=== PATIENT | female | born 1960 | race Hispanic/Latino ===

== ENCOUNTER → 2019-03-04 09:18 | Outpatient (CLI) | payer BC, SELFPAY ==
--- NOTE | 2019-03-04 09:26 | BI_ITS ---
MAMMOGRAPHY - BILATERAL DIAGNOSTIC REASON FOR EXAM: Female, 58 years old. Left breast lump. PERTINENT HISTORY: Sister with breast cancer. TECHNIQUE: Digital bilateral breast ace (3D mammographic acquisition) in the CC and MLO projections. 2-D mediolateral oblique (MLO) and craniocaudad (CC) views of both breasts were obtained. CAD: Full Field Digital Mammography with Computer Added Detection was performed. COMPARISON: Comparison is made with prior outside examination dated January 08, 2018. FINDINGS: Breast Composition: The breasts are heterogeneously dense, which may obscure small masses. There are no dominant masses or suspicious calcifications. Since prior study, there has been progressive asymmetry of the breast tissue in the upper deep lateral aspect of the left breast. This may represent breast tissue. Correlation with ultrasound is recommended. No other significant abnormalities are identified. BI/DIAG MAMM W/CAD, BILAT IMPRESSION: Progressive asymmetry of breast tissue in the upper lateral aspect of the left breast. Correlation with ultrasound is recommended. ASSESSMENT CATEGORY: BIRADS Category 0: Incomplete. Need additional imaging evaluation. A letter regarding these results will be sent to the patient by the facility within 30 days. Approximately 10% of breast cancers are not detected by mammography. A normal mammogram should not delay biopsy of a clinically suspicious abnormality. Electronically Signed: González Summers, at 11:48 EST , Service support ,
== END ==
PROVIDERS: Family Provider Nurse Practitioner Family; PCP Nurse Practitioner Family; Visit Provider Nurse Practitioner Family
DX: R92.8 Other abnormal and inconclusive findings on diagnostic imaging of breast (principal); N64.4 Mastodynia
CPT/HCPCS: 77062; 77066; G0279

== ENCOUNTER → 2019-04-22 08:27 | Outpatient (CLI) | payer BC, SELFPAY ==
--- NOTE | 2019-04-22 08:39 | US_ITS ---
STUDY: ULTRASOUND BREAST - LEFT REASON FOR EXAM: Female, 59 years old. Abnormal screening mammogram. TECHNIQUE: Axial and longitudinal images of the LEFT breast were performed with a high resolution ultrasound transducer. # OF IMAGES: 57 COMPARISON: Comparison is made with prior mammogram dated March 04, 2019. FINDINGS: LEFT Breast: There is a 4 mm x 5 mm x 4 mm hypoechoic solid nodule with posterior shadowing and increased vascularity at the 11:00 position of the breast. A biopsy is recommended. This lesion is taller than it is wide. There is also evidence of a 5 mm x 7 mm x 3 mm cyst at the 3:00 position of the breast. US/Breast Limited Unilateral IMPRESSION: Suspicious solid nodule measuring 4 mm x 5 mm x 4 mm with posterior shadowing and increased vascularity at the 11:00 position of the breast. A biopsy is recommended. ASSESSMENT CATEGORY: BIRADS Category 4: Suspicious - Biopsy Should Be Considered. A letter regarding these results will be sent to the patient by the facility within 30 days. Electronically Signed: González Summers, at 10:28 EST , Service support ,
== END ==
PROVIDERS: PCP Nurse Practitioner Family; Referring Provider Nurse Practitioner Family; Visit Provider Nurse Practitioner Family
DX: N63.20 Unspecified lump in the left breast, unspecified quadrant (principal)
CPT/HCPCS: 76642

== ENCOUNTER → 2019-06-03 | Outpatient (CLI) | payer BC, SELFPAY ==
[2019-05-20 14:19] VITALS: BMI 23.1
--- NOTE | 2019-06-03 13:36 | MRI_ITS ---
STUDY: BILATERAL BREAST MR WITHOUT AND WITH CONTRAST REASON FOR EXAM: Female, 59 years old. Biopsy-proven invasive lobular cancer of the left breast. History of breast cancer in sister at age 56. TECHNIQUE: Multi-sequence multi-echo imaging of both breasts was performed with a dedicated breast coil. T1-weighted and T2-weighted images were performed before the administration of contrast. T1-weighted images were also performed after the administration of IV Dotarem 12cc without complications. COMPARISON: Left breast ultrasound dated April 22, 2019 and bilateral mammography dated March 04, 2019 FINDINGS: RIGHT BREAST: The breast tissue is scattered fibroglandular densities with mild background enhancement. There are no abnormal enhancing masses or areas of non-mass enhancement in the right breast. LEFT BREAST: The breast tissue is scattered fibroglandular densities with moderate background enhancement. Irregular enhancing mass at the 1:00 to 2:00 position of the left breast measuring 2.3 cm x 1.6 cm x 1.3 cm located approximately 7 cm behind the nipple. Tissue clip artifact within the central portion of the enhancing mass. Mass is compatible with the known index lesion. Shotty non-pathologically enlarged lymph nodes in both axillary symmetrically. There is no abnormality in the visualized regions of the chest or liver. MRI/Breast Bilateral W/O and W IMPRESSION: Lesion in the left breast corresponding to the index lesion, as described above. No significant abnormality of the right breast. CATEGORY: BIRADS Category 6: Known Biopsy-Proven Malignancy - Appropriate Action Should Be Taken. A letter regarding these results will be sent to the patient by the facility within 30 days. Electronically Signed: Tomi Crow MD at 21:10 EDT , Service support ,
== END | disposition home or self-care (01) ==
LOC: MRI 13:36
PROVIDERS: Referring Provider Surgery; Visit Provider Surgery
DX: C50.912 Malignant neoplasm of unspecified site of left female breast (principal)
CPT/HCPCS: 77049; A9575; A4216; C8908

== ENCOUNTER 2019-06-10 08:24 | Day surgery (SDC) | payer BC, SELFPAY ==
--- NOTE | 2019-05-20 03:05 | HP_ITS ---
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 Is patient in pain?: No Allergies No Known Allergies Allergy (Verified 05/20/19 14:19) Medications cholecalciferol (vitamin D3) 4,000 unit capsule 4,000 unit PO DAILY 05/20/19 [History] multivitamin 1 cap PO DAILY 05/20/19 [History] turmeric root extract 500 mg capsule 500 mg PO DAILY 05/20/19 [History Confirmed 05/20/19] Is last menstrual period known: No Post menopausal: Yes Patient : No PFSH Medical History (Updated 05/20/19 @ 14:18 by Eduarda Rojas) Breast cancer, left (Acute ~05/2019) Surgical History (Updated 05/20/19 @ 14:18 by Eduarda Rojas) History of carpal tunnel surgery of right wrist (Acute) History of colonoscopy (Acute ~2011) History of left breast biopsy (Acute ~05/2019) History of surgical removal of ganglion cyst (Acute) Family History (Updated 05/20/19 @ 14:19 by Eduarda Rojas) Sister Breast cancer Father Heart disease Mother Heart disease Social History (Updated 05/20/19 @ 15:[address] Mark Napoles MD) Smoking Status: Never smoker HPI HPI HPI: KINGSLEY HEARD, is a 59 F who presents to the office today for HPI HPI Surgical H&P: Yes HPI: KINGSLEY HEARD, is a 59 F who presents to the office today for left breast cancer. The patient had a mammogram which showed an area of density in the left breast and an ultrasound showed a BI-RADS 4 lesion which was 4 mm x 5 mm. The patient had biopsy at [facility] which showed invasive lobular carcinoma. The patient is very hesitant and comes to me for second opinion on how to treat this cancer. The patient is not having any symptoms on that side or any pain or discharge. The patient does have a history of breast cancer in her sister. The patient reports that there was a lesion somewhere in the right breast that they tried to biopsy in the past but it was too deep and they were unable to biopsy. ROS General General: No weight change, appetite, fatigue, colon cancer, breast cancer or weakness HEENT HEENT: No difficulty swallowing, eye injury, eye surgery, swollen glands or hoarseness Endo Endocrine: No thyroid disease, diabetes mellitus, thyroid cancer, Hair loss, heat intolerance or cold intolerance Skin Skin: No rash or changing moles Breast Breast: Yes abnormal mammogram and abnormal US; no left breast lump, right breast lump, nipple discharge, breast pain or breast enlargement Musc Musculoskeletal: No back problems, arthritis or rheumatoid arthritis Cardio Cardiovascular: No murmur, pacemaker, heart disease, atrial fibrillation, high blood pressure, heart attack, heart stent, palpitations, shortness of breat with exertion or chest pain Psych Psychiatric: No depression or anxiety Resp Respiratory: No shortness of breath, No sleep apnea, No cough, No COPD, No asthma, No emphysema, No wheezing Gastro Gastrointestinal: No abdominal pain, No nausea or vomiting, No diarrhea, No constipation, No blood in stool, No acid reflux, No hemorrhoids, No ulcers, No gallbladder problem, No black,tarry stools Federico Hematologic: No blood thinners, No blood disorders, No bleeding, No anemia, No blood clots Neuro Neurologic: No weakness Exam Const General: cooperative Orientation: alert, oriented x3 [facility] Head: normal to inspection Ears: hearing grossly normal bilaterally Eyes General: appearance normal, both eyes and all related structures Visual Raphael: normal visual raphael by confrontation Neck Neck: normal visual inspection Chest Chest palpation & inspection: normal inspection of the chest Breast Palpation: No nipple discharge Resp Effort & Inspection: normal respiratory effort Auscultation: clear to auscultation bilaterally Cardio Rate: regular rate Rhythm: regular rhythm Heart Sounds: no murmurs GI Inspection: non-distended Palpation: soft, nontender Musc Cervical Spine: normal cervical lordosis, cervical ROM normal Skin General: no rashes or lesions noted Neuro General: alert, oriented x3 Cranial Nerves: CN's II-XI intact bilaterally Cognition: normal cognition Extrem General: normal to inspection, full ROM Psych Appearance: grossly normal Affect: normal affect Assessment & Plan Problems 1. Invasive lobular carcinoma of left breast in female C50.912 Plan 1. The patient is very anxious over her cancer diagnosis. She came to me for a second opinion as she does not want surgery. She was hoping that her cancer was fully removed during the needle biopsy. I informed her that this is not true and that there can be projections at a microscopic level into the surrounding breast tissue. I believe she needs definitive surgical treatment as well as staging. I informed her that she would have options of mastectomy versus lumpectomy with radiation. I would also recommend sentinel lymph node biopsy. 2. I would recommend preoperative MRI due to the density of her breast and the fact that this is lobular in nature. 3. I discussed surgery with her in detail and due to the size of this and the size of her breasts I do believe that she would be a good candidate for partial mastectomy with sentinel lymph node biopsy with wire localization. I discussed this with them in detail including the risks of bleeding, infection, hematoma, need for further surgery due to positive margins, axillary nerve injury, small chance of lymphedema. The patient understands all the risks and will schedule surgery. 4. I offered the patient if she would like to return to Dr. Moncada I completely understand, or I offered her surgery as well. The patient would like to have surgery here. 5. I spent 1 hour of time with her including counseling for more than 50% of the visit. Mark Napoles MD Pager: [facility] [address] [place] [address], [address] [place] [address] Office: Orders Orders: MRI BREAST W/O CONT BILAT Today C50.912 Coding Level of Care Code Off vis,est,level 5 Diagnoses Invasive lobular carcinoma of left breast in female C50.912 Time Spent (min) 45 05/20/19 1505 <Electronically signed by Mark matthews MD> Date _ Mark Napoles MD I have re-examined the patient. There are no clinical changes since date of exam. I ordered an MRI which showed this 2.3 cm left breast mass with no lymphadenopathy and no other lesions in the contralateral or ipsilateral breast. Plan for needle localization and then partial mastectomy with sentinel lymph node biopsy. Mark Napoles MD Pager: [facility] [address] [place] [address] [address] [place] [address] Office:
--- NOTE | 2019-05-20 03:05 | HP_ITS ---
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 Is patient in pain?: No Allergies No Known Allergies Allergy (Verified 05/20/19 14:19) Medications cholecalciferol (vitamin D3) 4,000 unit capsule 4,000 unit PO DAILY 05/20/19 [History] multivitamin 1 cap PO DAILY 05/20/19 [History] turmeric root extract 500 mg capsule 500 mg PO DAILY 05/20/19 [History Confirmed 05/20/19] Is last menstrual period known: No Post menopausal: Yes Patient : No PFSH Medical History (Updated 05/20/19 @ 14:18 by Eduarda Rojas) Breast cancer, left (Acute ~05/2019) Surgical History (Updated 05/20/19 @ 14:18 by Eduarda Rojas) History of carpal tunnel surgery of right wrist (Acute) History of colonoscopy (Acute ~2011) History of left breast biopsy (Acute ~05/2019) History of surgical removal of ganglion cyst (Acute) Family History (Updated 05/20/19 @ 14:19 by Eduarda Rojas) Sister Breast cancer Father Heart disease Mother Heart disease Social History (Updated 05/20/19 @ 15:[address] Mark Napoles MD) Smoking Status: Never smoker HPI HPI HPI: KINGSLEY HEARD, is a 59 F who presents to the office today for HPI HPI Surgical H&P: Yes HPI: KINGSLEY HEARD, is a 59 F who presents to the office today for left breast cancer. The patient had a mammogram which showed an area of density in the left breast and an ultrasound showed a BI-RADS 4 lesion which was 4 mm x 5 mm. The patient had biopsy at [facility] which showed invasive lobular carcinoma. The patient is very hesitant and comes to me for second opinion on how to treat this cancer. The patient is not having any symptoms on that side or any pain or discharge. The patient does have a history of breast cancer in her sister. The patient reports that there was a lesion somewhere in the right breast that they tried to biopsy in the past but it was too deep and they were unable to biopsy. ROS General General: No weight change, appetite, fatigue, colon cancer, breast cancer or weakness HEENT HEENT: No difficulty swallowing, eye injury, eye surgery, swollen glands or hoarseness Endo Endocrine: No thyroid disease, diabetes mellitus, thyroid cancer, Hair loss, heat intolerance or cold intolerance Skin Skin: No rash or changing moles Breast Breast: Yes abnormal mammogram and abnormal US; no left breast lump, right breast lump, nipple discharge, breast pain or breast enlargement Musc Musculoskeletal: No back problems, arthritis or rheumatoid arthritis Cardio Cardiovascular: No murmur, pacemaker, heart disease, atrial fibrillation, high blood pressure, heart attack, heart stent, palpitations, shortness of breat with exertion or chest pain Psych Psychiatric: No depression or anxiety Resp Respiratory: No shortness of breath, No sleep apnea, No cough, No COPD, No asthma, No emphysema, No wheezing Gastro Gastrointestinal: No abdominal pain, No nausea or vomiting, No diarrhea, No constipation, No blood in stool, No acid reflux, No hemorrhoids, No ulcers, No gallbladder problem, No black,tarry stools Federico Hematologic: No blood thinners, No blood disorders, No bleeding, No anemia, No blood clots Neuro Neurologic: No weakness Exam Const General: cooperative Orientation: alert, oriented x3 [facility] Head: normal to inspection Ears: hearing grossly normal bilaterally Eyes General: appearance normal, both eyes and all related structures Visual Raphael: normal visual raphael by confrontation Neck Neck: normal visual inspection Chest Chest palpation & inspection: normal inspection of the chest Breast Palpation: No nipple discharge Resp Effort & Inspection: normal respiratory effort Auscultation: clear to auscultation bilaterally Cardio Rate: regular rate Rhythm: regular rhythm Heart Sounds: no murmurs GI Inspection: non-distended Palpation: soft, nontender Musc Cervical Spine: normal cervical lordosis, cervical ROM normal Skin General: no rashes or lesions noted Neuro General: alert, oriented x3 Cranial Nerves: CN's II-XI intact bilaterally Cognition: normal cognition Extrem General: normal to inspection, full ROM Psych Appearance: grossly normal Affect: normal affect Assessment & Plan Problems 1. Invasive lobular carcinoma of left breast in female C50.912 Plan 1. The patient is very anxious over her cancer diagnosis. She came to me for a second opinion as she does not want surgery. She was hoping that her cancer was fully removed during the needle biopsy. I informed her that this is not true and that there can be projections at a microscopic level into the surrounding breast tissue. I believe she needs definitive surgical treatment as well as staging. I informed her that she would have options of mastectomy versus lumpectomy with radiation. I would also recommend sentinel lymph node biopsy. 2. I would recommend preoperative MRI due to the density of her breast and the fact that this is lobular in nature. 3. I discussed surgery with her in detail and due to the size of this and the size of her breasts I do believe that she would be a good candidate for partial mastectomy with sentinel lymph node biopsy with wire localization. I discussed this with them in detail including the risks of bleeding, infection, hematoma, need for further surgery due to positive margins, axillary nerve injury, small chance of lymphedema. The patient understands all the risks and will schedule surgery. 4. I offered the patient if she would like to return to Dr. Moncada I completely understand, or I offered her surgery as well. The patient would like to have surgery here. 5. I spent 1 hour of time with her including counseling for more than 50% of the visit. Mark Napoles MD Pager: [facility] [address] [place] [address], [address] [place] [address] Office: Orders Orders: MRI BREAST W/O CONT BILAT Today C50.912 Coding Level of Care Code Off vis,est,level 5 Diagnoses Invasive lobular carcinoma of left breast in female C50.912 Time Spent (min) 45 05/20/19 2855 <Electronically signed by Mark matthews MD> Date _ Mark Napoles MD
[2019-05-20 14:19] VITALS: BMI 23.1
[2019-06-10] VITALS (8 sets, daily range): BP systolic 107–127; BP diastolic 62–75; PULSE 67–99; RESP 14–18; TEMP 36.7–37.2; O2SAT 95–99; BMI 23.8
--- NOTE | 2019-06-10 | AXNB_PTH ---
PATIENT: KINGSLEY HEARD LOC: [facility] – [place] U#:[id number] AGE/SX: 59/F ROOM: RE06/10/[address]: Dr. Mark Napoles MD : 1960 BED: DIS: 06/10/2019 SPEC #: [id number] RECD: 06/10/19 12:11 STATUS: SIERRA REShamar #: [id number] NIKI: 06/10/19 00:[address]: Mark Napoles DEPT: SURGICAL PATHOLOGY RECD BY: Maryanne Bahena ENTERED: 06/10/19 12:40 SP TYPE: AX NODE BX OTHR DR: No Primary Care Phys Tissues: A - Axillary lymph node, NOS B - Left breast, NOS C - Left breast, NOS Procedures: Frozen Section (charge) Frozen Section Add'l ([facility]) Surgery Specimen Level IV Surgery Specimen Level V HEADER OPERATION: Left breast lumpectomy, SN biopsy PRE-OP DIAGNOSIS: Invasive lobular carcinoma of left breast TISSUE SUBMITTED: A - Left axillary lymph node, FS, B - Left partial mastectomy, C - Anterior margin left breast - suture israel new anterior margin FROZEN SECTION DIAGNOSIS A. [place] lymph node, left axillary, biopsy: Two out of two lymph nodes negative for metastatic carcinoma. SALVADOR:roni 06/10/19 MICROSCOPIC DIAGNOSIS A. Left axillary sentinel lymph node, biopsy: One out of two lymph nodes positive for macrometastatic carcinoma. See comment. B. Left breast, partial mastectomy: Three foci of invasive lobular carcinoma (block B1, B8 and B12). Extensive foci of lobular neoplasia (including lobular carcinoma in situ and atypical lobular hyperplasia). See comment and cancer summary below. C. Anterior margin: Extensive atypical lobular hyperplasia. Hyalinized fibroadenoma with focal area of atypical lobular hyperplasia (0.5 x 0.4 cm). Negative for invasive carcinoma. :roni 06/16/19 INVASIVE BREAST CANCER SUMMARY Procedure - excision with wire-guided localization Specimen laterality - left Tumor site - not specified Tumor size - largest invasive carcinoma: 0.5 x 0.4 cm (measured microscopically) Histologic type - invasive lobular carcinoma Histologic Grade (Dayton grade): Glandular/tubular differentiation - score 3 Nuclear pleomorphism - score 1 Mitotic count - score 1 Overall grade - 1 (score of 5) Tumor focality - multiple foci of invasive carcinoma. Number of foci - three Size of individual foci - 0.5 x 0.4 cm (B1) and 0.2 x 0.1 cm, smaller two foci (B8 & B12) Ductal carcinoma in situ (DCIS) - not identified Lobular carcinoma in situ (LCIS): present. See comment. Tumor extension: Skin - not present Nipple - not applicable Skeletal muscle - no skeletal muscle present. Margins - invasive carcinoma: Invasive lobular carcinoma is 0.1 cm away from the closest superior margin. Margins - lobular carcinoma in situ: Lobular carcinoma in situ is 0.1 cm away from the closest superior margin. Regional lymph nodes: Total number of lymph nodes examined - 2 Number of sentinel lymph nodes examined - 2 Number of lymph nodes with macrometastases - 1 Number of lymph nodes with micrometastases and isolated tumor cells - 0 Extranodal extension - not seen Treatment effect - no known presurgical therapy. Lymphvascular invasion - not identified Dermal lymphvascular invasion - not applicable Additional pathologic findings - extensive atypical lobular hyperplasia See comment. - Hyalinized fibroadenoma with focal area of atypical lobular hyperplasia,(0.5 x 0.4 cm) measured microscopically ( specimen C). Ancillary studies - previously performed at [facility] ([id number]) ER - positive (99%, strong intensity) RI - positive (60%, moderate intensity) Her2 wayne - negative (1+) Microcalcifications - present in benign breast tissue. Clinical history - Please make reference to previous specimen from [facility] dated 04/23/19, ([id number]) left breast, abnormal mammogram, needle core biopsy with diagnosis of invasive mammary carcinoma with predominantly lobular features, provisional Dayton grade 1, lobular neoplasia (atypical lobular hyperplasia/lobular carcinoma in situ) and microcalcifications present within lobular neoplasia and unremarkable lobules. PATHOLOGIC STAGE: pT1a(m) pN1a Mx The above summary is in compliance with [employer] (CAP) Cancer Protocols Checklist and [place] Joint Committee on Cancer (AJCC), Staging Manual, 8th Ed. COMMENT A. Immunohistochemistry ([id number]) supports the above diagnosis. Two foci of metastatic carcinoma are noted adjacent to each other and measures 1.75 and 2.25 mm. Frozen section slides are reviewed again and negative for metastatic carcinoma. B. Grossly identified nodule consists of lobular carcinoma in situ. Three foci of invasive lobular carcinomas are noted in the other areas. Multiple foci of extensive lobular neoplasia (including lobular carcinoma in situ and atypical lobular hyperplasia) are noted adjacent to the invasive carcinoma and in the other areas away from the invasive carcinoma. Immunohistochemistry ([id number]) supports the above diagnosis. This case is discussed with Dr. Napoles on 06/17/19. Case has been reviewed in consultation with Dr. Galvan who concurs with the above diagnosis. IDC:AM MICROSCOPIC DESCRIPTION Slides are reviewed. GROSS DESCRIPTION A - Received fresh for frozen section diagnosis labeled with the patient's name is a specimen designated sentinel lymph node, left axillary. The specimen consists of a piece of fibroadipose tissue measuring 2.5 x 2 x 0.5 cm. Two nodules consistent with lymph nodes are identified measuring 0.5 and 1 cm in greatest dimension. The lymph nodes are submitted in entirety for froze section diagnosis as follows: 1??frozen section, one lymph node, 2 - frozen section, one bisected lymph node. / SJ:roni 06/10/19 B - Received fresh for intraoperative consultation labeled with the patient's name and designated left breast partial mastectomy. The specimen consists of a piece of smith-yellow fibroadipose with needle localization measuring 5 x 4.5 x 2 cm. The specimen is oriented as follows: long - lateral, short - superior. The specimen is inked as follows: anterior - yellow, posterior - black, superior - blue, inferior - green, medial - red and lateral - orange. Sections reveal a smith, indurated tumor mass measuring 0.8 x 0.5 x 0.5 cm. This mass is 0.5 cm away from the closest anterior margin. This information is conveyed to the surgeon intraoperatively. Sectioning of the rest of the specimen reveals smith-yellow adipose cut surfaces with scant fibrous area. Equip Maint Eng sections are submitted in eight cassettes as follows: 1?& 2 - perpendicular margin, 3 - tumor, 4-6 - front office representative sections adjacent to the tumor, 7 & 8 - front office representative sections away from the tumor. Sections will be submitted after additional fixation. / SJ:roni 06/11/19 The rest of the specimen is submitted in six more cassettes, 9-14. / :roni 06/15/19 C - Received in fixative is one container labeled with the patient's name and designated anterior margin. The specimen consists of a piece of fibroadipose tissue measuring 2.5 x 2 x 1 cm. The specimen is oriented by a suture identifying the new margin. The specimen is inked as follows: new margin - black, old margin - blue. Sections reveal yellow adipose cut surfaces without any mass lesion. The entire specimen is submitted in three cassettes from one end to another end. / :roni 06/11/19 TC:0 CPT: 00121 x2, 77851, 43618, 98994, 61599
--- NOTE | 2019-06-10 | IMM_PTH ---
PATIENT: KINGSLEY HEARD [place] [facility] [place][id number] AGE/SX: 59/F ROOM: RE06/10/[address]: Dr. Mark Napoles MD : 1960 BED: DIS: 06/10/2019 SPEC #: [id number] RECD: 06/15/19 11:59 STATUS: SIERRA REQ #: [id number] NIKI: 06/10/19 00:[address]: Mark Napoles DEPT: IMMUNOHISTOCHEMISTRY RECD BY: Maryanne Bahena ENTERED: 06/15/19 12:03 SP TYPE: IMMUNO OTHR DR: No Primary Care Phys Tissues: A - Axillary lymph node, NOS B - Left breast, NOS Procedures: CK8 (initial) CALPONIN-1 (add) CK7 (add) CK8 (add) E-CAD (add) Pankeratin (initial) Pankeratin (add) P40 (add) PHYSICIAN & INSTITUTION [place] [id number] SPECIMEN INFORMATION: Tissue Source: A - Left axillary lymph node, B - Left breast partial mastectomy Clinical Info: Invasive lobular carcinoma of left breast Specimen Number: [id number] A1, A2, B1, B2, B3, B8, B12 CPT code: 38647 x2, 10704 x22 METHODOLOGY: Deparaffinized sections of prefer/formalin-fixed tissue or PAP/DQ stained slides are incubated with monoclonal/polyclonal antibodies/oligonucleotide probes. Localization is made via biotin free immunoperoxidase method. Appropriate controls are performed and reacted as expected. Results on target cell population are indicated in the following table: RESULTS: ANTIBODY / CLONE RESULT Block A1 AE1-3 (AE1/AE3/PCK26) positive CK7 (OV-TL12/30) positive Block A2 AE1-3 (AE1/AE3/PCK26) negative CK7 (OV-TL12/30) negative Block B1 CK8 (32kujfS11) positive E-Cad (ECH-6) negative P40 (BC28) negative * Calponin-1 (AG009E) negative * Block B2 CK8 (74jpqmF79) positive E-Cad (ECH-6) negative P40 (BC28) positive Calponin-1 (FX664C) positive Block B3 CK8 (42ijkxY12) positive, weak E-Cad (ECH-6) negative P40 (BC28) negative Calponin-1 (ZU081H) positive, weak Block B8 CK8 (64xisrJ59) positive E-Cad (ECH-6) negative P40 (BC28) negative * Calponin-1 (DV790H) negative * Block B12 CK8 (65kxwpI80) positive E-Cad (ECH-6) negative P40 (BC28) negative * Calponin-1 (RG722Q) negative * *?Positive in the area of lobular neoplasia ( LCIS and atypical lobular hyperplasia). These tests were developed and their performance characteristics determined by [facility]. They may not have been cleared or approved by the U.S. Food and Drug Administration. The FDA has determined that such clearance or approval is not necessary. The above immunohistochemical/dualISH markers are ordered and reviewed by the Pathologist. INTERPRETATION: A. Left axillary lymph node, biopsy: One out of two lymph nodes, positive for macrometastatic carcinoma. See comment. B. Left breast, partial mastectomy: Invasive lobular carcinoma (B1, B8 and B12). Lobular neoplasia including lobular carcinoma in situ and atypical lobular hyperplasia (B1, B2, B3, B8 and B12). SJ:roni 06/16/19 Comment: Smaller lymph node shows two foci of metastatic carcinoma adjacent to each other 1.75 mm to 2.25 mm in greatest dimension. Case has been reviewed in consultation with Dr. Galvan who concurs with the above diagnosis. IDC:AM
--- NOTE | 2019-06-10 08:30 | NM_ITS ---
PROCEDURE: NUCLEAR MEDICINE Injection [place] Node - LEFT breast(s). REASON FOR EXAM: Female, 59 years old. Left breast cancer. TECHNIQUE: [place] node localization using radionuclide methods of the LEFT breast(s) was performed following subcutaneous administration of 1.1 mCi of of sulfur colloid Tc-99m. FINDINGS: 1.1 mCi of technetium labeled sulfur colloid was injected subcutaneously in 4 equal aliquots in the upper medial aspect of the left breast. NM/Lymph Node Injection Only IMPRESSION: Subcutaneous injection of 1.1 mCi of the cerebral sulfur colloid in the upper medial aspect of the left breast. Electronically Signed: González Summers, at 9:21 EDT , Service support ,
[2019-06-10] MEDS: Lactated Ringers 1,000 ML 100 ML IV (09:10)
[2019-06-10] MEDS: Cefazolin 2 GM in 0.9% Normal Saline 100 ML IV (11:27)
[2019-06-10] MEDS: Isosulfan Blue 1% 5 ML Vial (11:53)
--- NOTE | 2019-06-10 12:00 | BI_ITS ---
SURGICAL BREAST SPECIMEN RADIOGRAPH CLINICAL: Document presence of tissue clip marker in biopsy specimen. FINDINGS: Specimen shows presence of tissue clip marker. Electronically Signed: González Summers, at 14:08 EDT , Service support , BI/Breast Biopsy Specimen
[2019-06-10] MEDS: Bupiv/Epi 0.25% 30 ML Vial (12:38)
--- NOTE | 2019-06-10 13:09 | PCM.OPRPT ---
Problem List (1) Invasive lobular carcinoma of left breast in female Status: Acute Report of Operation Date of Procedure: 06/10/19 Pre-Operative Diagnosis: Invasive left lobular carcinoma of the breast Post-Operative Diagnosis: Same Surgery/Procedure Performed:: 1. Stereotactic guided wire localization. 2. Left axillary sentinel lymph node biopsy. 3. Left partial mastectomy with injection of blue dye Specimen's removed: 1. Left axillary lymph node. 2. Left partial mastectomy. 3. New anterior margin of left breast with suture marking the new margin Description of Procedure: Patient was brought to the stereotactic room and the left breast was placed into the table and images were obtained. After stereotactic images were obtained the prior biopsy clip was localized. The skin was prepped with Betadine and injected with local anesthesia. Wire for localization was placed adjacent to the clip. Mammograms were performed and the wire was in good position. Next the patient was brought back to the operating room and general anesthesia was induced. The left retroareolar space was injected with 5 cc of Lymphazurin and 10 cc of saline and then massaged for 5 minutes. The left axilla and breast were prepped in the usual sterile fashion. A curvilinear incision was made in the left axilla and deepened to the axillary fascia which was incised using electrocautery. There was a clear blue node superficially in the axilla which was dissected free and removed. There was no radiotracer in this note or in the axilla. There were no other blue nodes or palpable lymph nodes in the left axilla. These were sent for pathology and the hemostasis was obtained and the axilla was packed with wet gauze. Incision was made over the left breast between the nipple and the wire entry site. Flaps were created using electrocautery. The guidewire was delivered into the incision. Allis was used to grasp the mass and elevated and he was dissected free using electrocautery and removed and marked. It was sent for pathology and hemostasis was obtained. Pathology from the lymph node revealed 2- lymph nodes. Pathology from the breast revealed a 0.8 cm tumor which was 0.5 cm from the anterior margin so a new anterior margin was obtained and marked. The breast cavity was irrigated and suctioned dry and hemostasis was obtained. Next both incisions were injected with local anesthetic. The deep axillary tissue was closed with interrupted 3-0 Vicryl sutures as well as a running superficial 4-0 Monocryl suture. The breast tissue was closed in the same fashion with interrupted 3-0 Vicryl sutures and a running 4-0 Monocryl suture. Histoacryl glue was applied to both incisions. A bra was applied as well. The patient was awoken and taken to PACU in stable condition. The patient tolerated the procedure well. - Admit VTE Documentation VTE Mechan Device Prophylaxis: SCD's
--- NOTE | 2019-06-10 13:15 | DCINST_ITS ---
Discharge Diet: No Restrictions Discharge Activity: May Not Drive - for 2-3 days or while taking narcotic pain meds., May Shower May shower in (days): 1 Lifting Restrictions: 10 pounds for 1 week. Call your doctor if your incision/area has: Continuous Slow Oozing, Sudden Increased Bleeding, Increased Pain/ Swelling, Increased Redness, Foul Smelling Discharge, Swelling at the incision site Call your doctor if you observe: Fever of 101 or Higher Suture Line Care: Avoid Pulling/Pushing, Avoid Pinching/Bending Cleanse incision/area with: Soap & Water Additional Dressing/Incision Instructions:: Remove bulky dressing tomorrow. May leave any opsite dressing for 3-4 days. Keep dressing in place until your follow-up appointment. Allergies/Adverse Reactions: Allergies No Known Allergies Allergy (Verified 06/10/19 08:52) Medications to take at Discharge turmeric root extract 500 mg capsule 500 mg PO DAILY 05/20/19 Calcium Carbonate/Vitamin D3 [Calcium 250-Vit D3 125 Tablet] 1 ea PO DAILY 06/07/19 Cholecalciferol (Vitamin D3) [Vitamin D3] 25 mcg PO 06/07/19 Mv-Min/Iron/Folic/Calcium/Vitk [Women's Multivitamin Tablet] 1 ea PO DAILY 06/07/19 Oxycodone HCl/Acetaminophen [Percocet 5-325 mg Tablet] 1 - 2 tab PO Q6H PRN 7 Days #40 tablet 06/10/19 The following prescriptions were given: Oxycodone HCl/Acetaminophen [Percocet 5-325 mg Tablet] 1 - 2 tab PO Q6H PRN 7 Days #40 tablet PRN Reason: Pain Score 4-10/10 Transmission Status: Sent to [facility] Please Follow Up With: Mark Napoles MD When: Please call to schedule 2 week follow up appointment. [phone]
--- NOTE | 2019-06-10 14:38 | SUR.PHASEII ---
PATIENT INCONTINENT OF STOOL ALL OVER BED. UP TO BATHROOM WITH ASSIST. PATIENT CLEANED UP AND NEW GOWN APPLIED. VERY LETHARGIC. BACK TO BED WITH TWO ASSIST. AWAKENS BRIEFLY IF SPOKEN TO BUT IMMEDIATELY BACK TO SLEEP. SIDERAILS UP. SPOUSE AT BEDSIDE.
== END 2019-06-10 16:10 | disposition home or self-care (01) ==
LOC: SDC 08:25 → AC 08:27
PROVIDERS: Referring Provider Surgery; Visit Provider Surgery
PROC: (CPT 19301; principal; 2019-06-10 11:15)
DX: C50.912 Malignant neoplasm of unspecified site of left female breast (principal); C77.3 Secondary and unspecified malignant neoplasm of axilla and upper limb lymph nodes; N60.92 Unspecified benign mammary dysplasia of left breast; D24.2 Benign neoplasm of left breast
CPT/HCPCS: 00400; 19301; 38500; 19281; 38792; 76098; 88305; 88307; 88331; 88332; 88341; 88342; A9541; J7120; A4216; J2405; Q9968

== ENCOUNTER 2020-02-24 17:44 | Observation (INO) | payer BC, SELFPAY ==
[2019-07-21 15:22] VITALS: BMI 23.6
[2019-07-29 09:12] VITALS: BMI 23.9
[2020-02-24 17:45] VITALS: BP 144/80; PULSE 64; RESP 16; TEMP 36.8; O2SAT 97; BMI 25.5
[2020-02-24] MEDS: Ondansetron 4 MG/2 ML Vial IV (18:09)
--- NOTE | 2020-02-24 18:09 | CT_ITS ---
STUDY: CT LUMBAR SPINE WITHOUT CONTRAST REASON FOR EXAM: Female, 59 years old. FELL 2 FEET OFF STOOL/LOW BACK PAIN RADIATION DOSAGE (If Supplied By Facility): CTDIvol = ( 13.82 ) mGy, DLP = ( 432.55 ) mGycm TECHNIQUE: The patient was scanned in a multi detector CT scanner. High resolution transaxial imaging was performed. Images were obtained from to . Sagittal and coronal images were reconstructed. Individualized dose optimization techniques were used for this CT. COMPARISON: None FINDINGS: Normal lumbar lordosis. There is no substantial scoliosis. There is a compression fracture of T12 vertebral body with fracture line along the anterior and posterior cortex. Mild degree of retropulsion (sagittal image 50 series 605). L1-2: Mild spondylosis. Normal disc height and morphology. Normal bilateral facet joints. Normal central canal and bilateral lateral recesses. Normal bilateral intervertebral neural foramina. L2-3: Mild spondylosis. Normal disc height and morphology. Normal bilateral facet joints. Normal central canal and bilateral lateral recesses. Normal bilateral intervertebral neural foramina. L3-4: Mild spondylosis. Normal disc height and morphology. Normal bilateral facet joints. Normal central canal and bilateral lateral recesses. Normal bilateral intervertebral neural foramina. L4-5: Normal endplates. Normal disc height and morphology. Normal bilateral facet joints. Normal central canal and bilateral lateral recesses. Normal bilateral intervertebral neural foramina. L5-S1: Normal endplates. Normal disc height and morphology. Normal bilateral facet joints. Normal central canal and bilateral lateral recesses. Normal bilateral intervertebral neural foramina. Ovarian dermoid cysts are described on abdomen/pelvis CT report. CT/Spine Lumbar without Contrast IMPRESSION: T12 compression fracture with mild retropulsion. Electronically Signed: Fran Scott MD (Brooks) at 18:58 EST , Service support ,
--- NOTE | 2020-02-24 18:09 | CT_ITS ---
STUDY: CT CERVICAL SPINE WITHOUT CONTRAST REASON FOR EXAM: Female, 59 years old. FELL 2 FEET OFF STOOL/LOW BACK PAIN RADIATION DOSAGE (If Supplied By Facility): CTDIvol = ( 16.66 ) mGy, DLP = ( 300.50 ) mGycm TECHNIQUE: High resolution transaxial imaging was performed without contrast material. Sagittal and coronal images were reconstructed. Individualized dose optimization techniques were used for this CT. COMPARISON: None FINDINGS: Normal craniovertebral junction. Normal anterior atlantoaxial articulation. Normal odontoid process. Normal cervical lordosis. Normal vertebral bodies and posterior osseous elements. C2-3: Normal endplates. Normal disc height and morphology. Normal central canal and intervertebral neuroforamina. C3-4: Normal endplates. Normal disc height and morphology. Normal central canal and intervertebral neuroforamina. C4-5: Normal endplates. Normal disc height and morphology. Normal central canal and intervertebral neuroforamina. C5-6: Normal endplates. Normal disc height and morphology. Normal central canal and intervertebral neuroforamina. C6-7: Normal endplates. Normal disc height and morphology. Normal central canal and intervertebral neuroforamina. C7-T1: Normal endplates. Normal disc height and morphology. Normal central canal and intervertebral neuroforamina. Normal visualized soft tissue structures. CT/Spine Cervical without Contras IMPRESSION: No cervical spine fracture. Electronically Signed: Fran Scott MD (Brooks) at 18:57 EST , Service support ,
--- NOTE | 2020-02-24 18:09 | CT_ITS ---
STUDY: CT ABDOMEN AND PELVIS WITHOUT CONTRAST REASON FOR EXAM: Female, 59 years old. FELL 2 FOOT OFF STOOL/LOW BACK PAIN RADIATION DOSAGE (If Supplied By Facility): CTDIvol = ( 6.58 ) mGy, DLP = ( 315.64 ) mGycm TECHNIQUE: Transaxial images were obtained from the dome of the diaphragm to the symphysis pubis without oral contrast, and without intravenous contrast. Sagittal and coronal images were reconstructed. Individualized dose optimization techniques were used for this CT. COMPARISON: None. FINDINGS: The visualized lung bases are unremarkable. The visualized portions of the heart are within normal limits. Normal liver. Normal gallbladder and extrahepatic biliary system. Normal spleen. Normal pancreas. Normal bilateral adrenal glands. Normal right kidney. Normal left kidney. Normal visualized stomach. Normal small intestine. Normal colon. The appendix is visualized and appears normal. Normal abdominal aorta. Normal inferior vena cava. Normal retroperitoneum. Normal urinary bladder. There are bilateral mixed density (with fat attenuation) pelvic masses measuring 4.7 x 6.3 cm on the right and 3.4 x 3.0 cm on the left (image 131 series 2) likely representing dermoids. Normal abdominal wall. T12 compression fracture with mild retropulsion is evident on image 71 of series 602). CT/Abdomen/Pelvis without Cont IMPRESSION: 1. No pelvic free fluid or pneumoperitoneum. No hydronephrosis. 2. T12 compression fracture. 3. 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 Electronically Signed: Fran Scott MD (Brooks) at 18:57 EST , Service support ,
--- NOTE | 2020-02-24 18:09 | CT_ITS ---
STUDY: CT BRAIN WITHOUT CONTRAST REASON FOR EXAM: Female, 59 years old. FELL 2 FEET OFF STOOL/LOW BACK PAIN RADIATION DOSAGE (If Supplied By Facility): CTDIvol = ( 44.99 ) mGy, DLP = ( 812.98 ) mGycm TECHNIQUE: Transaxial CT imaging of the brain was performed without administration of intravenous contrast material. Individualized dose optimization techniques were used for this CT. COMPARISON: No relevant priors. FINDINGS: Normal soft tissue structures. Normal calvarium. Normal size ventricles and extra-axial spaces for the patient''s age. Normal white matter tracts of the cerebral hemispheres. Normal basal ganglia and thalami. Normal brainstem. Normal cerebellum. There is no intracranial hemorrhage. There are no findings of an acute ischemic infarction. Normal visualized paranasal sinuses. CT/Brain/Head without Contrast IMPRESSION: No acute cardiopulmonary process. Electronically Signed: Fran Scott MD (Brooks) at 18:52 EST , Service support ,
[2020-02-24] MEDS: Morphine 4 MG/ML Syringe IV ×2 (18:10→19:38)
--- NOTE | 2020-02-24 18:10 | ED.VIS.GEN ---
History of Present Illness Chief Complaint: Fall Narrative: This patient is a 59-year-old female who has prior history of lumpectomy but takes no daily medications. She was on a stool in her closet trying to get to a shelf. She lost her balance and fell straight backward onto her lower back. She did not hit her head. She did not lose consciousness. She does not take any anticoagulation. She complains of isolated lower back pain. No headache no neck pain no extremity pain no chest pain no difficulty breathing no abdominal pain. No numbness tingling or weakness. Past Medical History - Allergies and Home Meds Allergies/Adverse Reactions: Allergies chlorhexidine Allergy (Mild, Verified 02/24/20 17:48) Rash Primary Care Physician: Care Physician,No Primary [Primary Care Provider] - Past Medical History: - - Breast cancer Smoking Status: Never smoker Review of Systems All systems negative except as indicated General: Denies: Fever Cardiovascular: Denies: Chest pain Respiratory: Denies: Dyspnea Gastrointestinal: Denies: Abdominal pain Musculoskeletal: Reports: Back pain. Denies: Extremity Pain Skin: Denies: Rash Neurological: Denies: Headache Hematologic: Denies: Easy bruising, Easy bleeding Allergy: Denies: Uticaria Physical Exam Vital Signs/Narrative: Vital Signs Temp Pulse Resp BP Pulse Ox 02/24/20 17:45 98.2 F 64 16 144/80 H 97 Inital Vital Signs reviewed: Yes General: Well nourished, Well developed Head: Normocephalic, Atraumatic Eyes: Perrl ENT: Moist mucous membranes Neck: Supple, Nontender Cardiovascular: Regular rate, Regular rhythm Respiratory: No distress, CTA bilaterally Abdomen: Soft, Nontender, Nondistended Back: - - Patient has diffuse tenderness across the lower back both in the midline lumbar spine as well as bilateral CVA more so on the right Extremities: Nontender, - - Active full range of motion x4 without pain. Negative for: Tenderness Skin: Normal color Neurological: Alert, - - GCS of 15 with no focal or lateralizing neurological deficit Psychological: Normal affect Diagnostic/Tx/Re-eval Impressions Abdomen/Pelvis CT 02/24/20 18:09 IMPRESSION: 1. No pelvic free fluid or pneumoperitoneum. No hydronephrosis. 2. T12 compression fracture. 3. 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 Electronically Signed: Fran Scott MD (Brooks) at 18:57 EST , Service support , Brain CT 02/24/20 18:09 IMPRESSION: No acute cardiopulmonary process. Electronically Signed: Fran Scott MD (Brooks) at 18:52 EST , Service support , Cervical Spine CT 02/24/20 18:09 IMPRESSION: No cervical spine fracture. Electronically Signed: Fran Scott MD (Brooks) at 18:57 EST , Service support , Lumbar Spine CT 02/24/20 18:09 IMPRESSION: T12 compression fracture with mild retropulsion. Electronically Signed: Fran Scott MD (Brooks) at 18:58 EST , Service support , 02/24/20 18:09 Abdomen/Pelvis without Cont [CT] Stat Brain/Head without Contrast [CT] Stat CT Lumbar [Spine Lumbar without Contrast] [CT] Stat Spine Cervical without Contras [CT] Stat Laboratory Results 02/24/20 02/24/20 02/24/20 18:20 18:20 18:20 WBC 10.0 RBC 4.53 Hgb 11.6 L Hct 37.3 MCV 82.3 MCH 25.6 L MCHC 31.1 L RDW Std Deviation 42.7 RDW Coeff of Amanda 14.4 Plt Count 339 MPV 10.1 Immature Gran % (Auto) 0.700 Neut % (Auto) 79.3 H Lymph % (Auto) 12.2 L [place] % (Auto) 6.8 Eos % (Auto) 0.6 Baso % (Auto) 0.4 Absolute Neuts (auto) 8.0 H Absolute Lymphs (auto) 1.22 Nucleated RBC % 0 PT 12.7 INR 1.0 Sodium 144 Potassium 3.3 L Chloride 113 H Carbon Dioxide 27.0 Anion Gap 4 L BUN 11 Creatinine 0.54 L Estim Creat Clear Calc 98.06 Est GFR (MDRD) Af Amer 147 Est GFR (MDRD) Non-Af 122 BUN/Creatinine Ratio 20.2 H Glucose 103 Calcium 7.5 L Total Bilirubin 0.20 AST 16 ALT 24 Alkaline Phosphatase 100 Total Protein 6.3 L Albumin 3.4 Globulin 2.9 Albumin/Globulin Ratio 1.2 - Medical Decision Making Diagnostic evaluation above including serum laboratory studies CT imaging of the head cervical spine and lumbar spine and abdomen and pelvis is notable only for T12 compression fracture. Patient was given multiple doses of IV morphine. She continues to have severe pain. She is unable to ambulate. Therefore patient will be placed in hospital observation for further evaluation management/pain control. ED Disposition - Plan for ED Patient: Disposition: Acute Care Hospital [facility] Diagnosis: Intractable pain, T12 compression fracture Referrals: Care Physician,No Primary [Primary Care Provider] -
[2020-02-24 18:50] LABS: ALB/GLOB Ratio 1.2 RATIO (0.9-2.4); AST(SGOT) 16 U/L (15-37); Alanine Aminotransfer ALT/SGPT 24 U/L (13-56); Albumin, Serum 3.4 g/dL (3.2-5.0); Alkaline Phosphatase 100 U/L (45-117); Anion Gap 4 (5-15); BUN 11 mg/dL (7-18); BUN/Creat Ratio 20.2 RATIO (10-20); Calcium,Total 7.5 mg/dL (8.5-10.1); Chloride 113 mmol/L (98-107); Creatinine, Serum 0.54 mg/dL (0.55-1.02); EST Glomerular Filtration Rate 122 mL/min (>60); Est Glom Filt Rate - Afr Amer 147 mL/min (>60); Estimated Creatinine Clearance 98.06 ml/min; Globulin 2.9 g/dL (2.2-4.2); Glucose 103 mg/dL (74-106); Potassium 3.3 mmol/L (3.5-5.1); Protein, Total 6.3 g/dL (6.4-8.2); Sodium Level 144 mmol/L (136-145)
[2020-02-24 19:03] LABS: Prothrombin Time (Protime)PT. 12.7 SECONDS (11.7-14.9)
[2020-02-24 19:04] LABS: Absolute Lymphocyte Count 1.22 X10^3/uL (0.83-4.51); Basophil# 0.04 X10^3/uL; Basophil% 0.4 % (0-1); Eosinophil# 0.06 X10^3/uL; Eosinophils% 0.6 % (0-5); Hematocrit 37.3 % (37-47); Hemoglobin 11.6 g/dL (12.0-15.0); Lymphocyte # 1.22 X10^3/ul (4.0); Lymphocyte % 12.2 % (19-41); Mean Corp Hgb Conc 31.1 g/dL (32-36); Mean Corpuscular Hgb 25.6 pg (27.0-32.0); Mean Corpuscular Volume 82.3 fL (81-99); Mean Platelet Vol. 10.1 fl (6.2-12.0); Monocyte# 0.68 X10^3/uL; Monocyte% 6.8 % (0-10); NRBC Flagged by Analyzer 0 % (0-5); Neutrophil # 7.97 X10^3/uL (2.7-7.7); Neutrophil % 79.3 % (47-70); Platelet Count 339 K/mm3 (150-450); RBC Distribution Width CV 14.4 % (11.6-14.6); RBC Distribution Width SD 42.7 fl (35.1-43.9); Red Blood Count 4.53 M/mm3 (4.2-5.4)
--- NOTE | 2020-02-24 20:25 | HP.PCM_ITS ---
Problem List (1) Intractable back pain Status: Acute (2) Breast cancer of upper-outer quadrant of left female breast Status: Inactive Qualifiers: Estrogen receptor status: positive Qualified Code(s): C50.412 - Malignant neoplasm of upper-outer quadrant of left female breast; Z17.0 - Estrogen receptor positive status [ER+] (3) T12 compression fracture Status: Acute History of Present Illness Date of Admission: 02/24/20 Chief Complaint: fall with back pain. The patient is a 59 year old F with a significant history of left breast cancer status post lumpectomy with lymph node dissection who presents to the emergency department with excruciating lower back pain that happened after falling from a stool which was about 2 feet tall. Patient was started on the tool and trying to reach something. She fell and landed on her back. She described the pain as sharp. The pain is nonradiating. The pain increases with moving or sitting down. The pain improves with resting. At the emergency department she received pain medication to help with her pain. Past Medical History Medical History: Medical History (Last Reviewed 07/29/19 @ 09:15 by Darby Muñiz RN) Breast cancer, left Onset Date: ~05/2019 C50.912 Allergies chlorhexidine Allergy (Mild, Verified 02/24/20 17:48) Rash Home Medications: Ambulatory Orders Medication Instructions Recorded NK 02/24/20 Surgical History: Surgical History (Last Reviewed 02/24/20 @ 20:[address] Osman Boucher MD) History of carpal tunnel surgery of right wrist Z98.890 History of colonoscopy Onset Date: ~2011 Z98.890 History of left breast biopsy Onset Date: ~05/2019 Z98.890 History of lumpectomy Z98.890 06-10-19 History of surgical removal of ganglion cyst Z98.890 History of varicose vein stripping Z98.890 1998 Smoking Status: Never smoker Alcohol: Occasional - *Family History Maternal Family History: Family History (Last Reviewed 02/24/20 @ 20:[address] Osman Boucher MD) Sister Breast cancer Father Heart disease Mother Diabetes Review of Systems Constitutional: Denies: Chills, Fever, Weight Change HEENT: Denies: Head Aches, Sinus Congestion, Sinus Drainage Cardiovascular: Denies: Chest Pain, Palpitations Respiratory: Denies: Cough, Shortness of breath at rest, Sputum production Gastrointestinal: Denies: Abdominal Pain, Nausea, Vomiting Genitourinary: Denies: Dysuria Musculoskeletal: Reports: Back Pain. Denies: Leg Pain, Neck Pain, Shoulder Pain Skin: Denies: Rash, Wounds Neurological: Denies: Numbness, Tingling, Focal weakness Psychiatric: Denies: Anxiety, Depression, Homicidal Ideations, Suicidal Ideations Hematologic/ Lymphatic: Denies: Easy Bruising, Easy Bleeding VTE Information - Inpt Only VTE Present on Admission: No VTE Mechan Device Prophylaxis: None VTE Pharm Prophylaxis ordered?: Yes Patient Problems: Active and Suspected Problems (Last Reviewed 07/29/19 @ 09:15 by Darby Muñiz RN) T12 compression fracture (Acute) Intractable back pain (Acute) - Physical Exam Vitals/I&O's: Vital Signs Temp Pulse Resp BP Pulse Ox 98.2 F 64 16 144/80 H 97 02/24/20 17:45 02/24/20 17:45 02/24/20 17:45 02/24/20 17:45 02/24/20 17:45 Oxygen Delivery Method Room Air Weight: 67.5 kg Body Mass Index (BMI) 25.5 General: Alert, Oriented x3, Cooperative, - - In acute distress secondary to pain HEENT: Atraumatic, PERRLA, EOMI, Normocephalic Neck: Supple, No JVD, Negative Carotid Bruits Lungs: Clear to auscultation, Normal air movement Cardiovascular: Regular rate, Normal S1, Normal S2, No murmurs Abdomen: Bowel Sounds Present, Soft, Non Tender Extremities: No edema, Capillary Refill Less than 3 Seconds Skin: No rashes, No breakdown Musculoskeletal: No Tenderness to Palpation of Joints or Extremities Neurological: Cranial nerves II-XII grossly intact Psych/Mental Status: Normal Affect, Appropriate Laboratory Results 02/24/20 18:20: WBC 10.0, RBC 4.53, Hgb 11.6 L, Hct 37.3, MCV 82.3, MCH 25.6 L, MCHC 31.1 L, RDW Std Deviation 42.7, RDW Coeff of Amanda 14.4, Plt Count 339, MPV 10.1, Immature Gran % (Auto) 0.700, Neut % (Auto) 79.3 H, Lymph % (Auto) 12.2 L, [place] % (Auto) 6.8, Eos % (Auto) 0.6, Baso % (Auto) 0.4, Absolute Neuts (auto) 8.0 H, Absolute Lymphs (auto) 1.22, Nucleated RBC % 0 02/24/20 18:20: PT 12.7, INR 1.0 02/24/20 18:20: Sodium 144, Potassium 3.3 L, Chloride 113 H, Carbon Dioxide 27.0, Anion Gap 4 L, BUN 11, Creatinine 0.54 L, Estim Creat Clear Calc 98.06, Est GFR (MDRD) Af Amer 147, Est GFR (MDRD) Non-Af 122, BUN/Creatinine Ratio 20.2 H, Glucose 103, Calcium 7.5 L, Total Bilirubin 0.20, AST 16, ALT 24, Alkaline Phosphatase 100, Total Protein 6.3 L, Albumin 3.4, Globulin 2.9, Albumin/Globulin Ratio 1.2 Assessment/Plan All Active Problems (Last Reviewed 07/29/19 @ 09:15 by Darby Muñiz RN) T12 compression fracture (Acute) Intractable back pain (Acute) Fall with intractable lower back pain; and T2 compression fracture Lumbar spine CT showed a T12 compression fracture with mild retropulsion. Received morphine IV at emergency department. Oxycodone 5 mg every 4 hours as needed for pain 4-5 over 10. Oxycodone 10 mg every 4 hour as needed for pain 6- 10 over 10. Escalate pain regimen as necessary. Bowel protocol and antiemetics ordered. Vitamin D level ordered. Consider discussing with Dr. Aquino to see whether patient would be a candidate of a kyphoplasty; or if pain is controlled patient referred to Dr. Aquino. Bilateral ovarian dermoid cyst Likely benign. Discussed with patient. Upon discharge consider referring patient to oncologist. DVT prophylaxis Subcutaneous Lovenox OBSV E&M: 05547 Initial observation care L2
[2020-02-24 20:35] VITALS: BP 154/72; PULSE 62; RESP 16; TEMP 36.6; O2SAT 97
[2020-02-24 22:01] VITALS: BP 128/74; PULSE 63; RESP 14; O2SAT 97
--- NOTE | 2020-02-24 22:14 | ED.RN ---
, GAYLE'S PHONE NUMBER [phone]
[2020-02-24 22:40] VITALS: BP 133/62; PULSE 68; RESP 20; TEMP 36.8; O2SAT 95
[2020-02-24] MEDS: oxyCODONE 5 MG Tablet 10 MG PO (22:44)
[2020-02-24 22:45] VITALS: BMI 22.8; BMI 25.0
[2020-02-25] MEDS: Ondansetron 4 MG/2 ML Vial IV (00:36)
[2020-02-25 04:04] VITALS: BP 102/56; PULSE 69; RESP 20; TEMP 36.8; O2SAT 97
[2020-02-25] MEDS: oxyCODONE 5 MG Tablet 10 MG PO ×3 (04:06→14:31)
[2020-02-25 07:10] VITALS: O2SAT 96
[2020-02-25 08:41] VITALS: BP 104/59; PULSE 60; RESP 18; TEMP 36.9; O2SAT 97
[2020-02-25] MEDS: Enoxaparin 40 MG/0.4 ML Syringe SC (10:12)
[2020-02-25] MEDS: Senna/Docusate Sodium 1 Tablet 2 TABLET PO (10:12)
--- NOTE | 2020-02-25 10:40 | MRI_ITS ---
STUDY: MRI THORACIC SPINE WITHOUT CONTRAST REASON FOR EXAM: Female, 59 years old. T 12 FX back pain TECHNIQUE: Standardized fat and water weighted pulse sequences were obtained in the sagittal and axial planes. COMPARISON: [address] FINDINGS: There is burst fracture of T12 with approximately 50% loss of height ventrally and 25% height loss dorsally. There is no kyphotic angulation. There is mild dorsal cortical retropulsion without thecal sac compression. There is expected marrow edema within the fracture site with remainder of the marrow normal. Posterior ligamentous complex is intact. Remainder of the spine is intact and aligned. Marrow and paraspinal soft tissues are normal. Thecal sac is patent. Epidural space is normal. Cord is normal in size, shape and signal and terminates at T12. Upper cauda equina is normal. MRI/Spine Thoracic (Routine) IMPRESSION: 1. T12 burst fracture, minimal posterior retropulsion without thecal sac stenosis. 2. Intact posterior ligamentous complex. Electronically Signed: Juan Alberto Baptiste, at 17:32 EST Tel , Service support ,
--- NOTE | 2020-02-25 12:04 | PCM.PN.HOSP ---
Patient Problems: Active and Suspected Problems (Last Reviewed 07/29/19 @ 09:15 by Darby Muñiz RN) T12 compression fracture (Acute) Intractable back pain (Acute) Intractable pain (Acute) Reason for Visit: T12 fracture Subjective: Still with back pain. Not moving per assisted. No paresthesia. No bowel or bladder incontinence. Vitals/I&O's: Vital Signs Temp Pulse Resp BP Pulse Ox 36.9 C 60 18 104/59 L 97 02/25/20 08:41 02/25/20 08:41 02/25/20 08:41 02/25/20 08:41 02/25/20 08:41 Oxygen Delivery Method Room Air Weight: 60.4 kg Body Mass Index (BMI) 22.8 Intake and Output for Last 24 Hours 02/23/20 02/24/20 02/25/20 23:59 23:59 23:59 Intake Total 120 / 120 200 / 200 Output Total 100 / 100 400 / 400 Balance -200 / -200 General: Alert, No apparent distress Neurological: Deep Tendon Reflexes 2+/4 and Symmetrical, Motor Exam 5/5 strength throughout - in LE, Muscle tone normal, Sensory exam intact to light touch and pain Laboratory Results 02/24/20 18:20: WBC 10.0, RBC 4.53, Hgb 11.6 L, Hct 37.3, MCV 82.3, MCH 25.6 L, MCHC 31.1 L, RDW Std Deviation 42.7, RDW Coeff of Amanda 14.4, Plt Count 339, MPV 10.1, Immature Gran % (Auto) 0.700, Neut % (Auto) 79.3 H, Lymph % (Auto) 12.2 L, [place] % (Auto) 6.8, Eos % (Auto) 0.6, Baso % (Auto) 0.4, Absolute Neuts (auto) 8.0 H, Absolute Lymphs (auto) 1.22, Nucleated RBC % 0 02/24/20 18:20: PT 12.7, INR 1.0 02/24/20 18:20: Sodium 144, Potassium 3.3 L, Chloride 113 H, Carbon Dioxide 27.0, Anion Gap 4 L, BUN 11, Creatinine 0.54 L, Estim Creat Clear Calc 98.06, Est GFR (MDRD) Af Amer 147, Est GFR (MDRD) Non-Af 122, BUN/Creatinine Ratio 20.2 H, Glucose 103, Calcium 7.5 L, Total Bilirubin 0.20, AST 16, ALT 24, Alkaline Phosphatase 100, Total Protein 6.3 L, Albumin 3.4, Globulin 2.9, Albumin/Globulin Ratio 1.2 02/24/20 18:20: Vitamin D 25-Hydroxy Pending Current Medications Acetaminophen (Acetaminophen 325 Mg Tablet) 650 mg PO Q6H PRN PRN PRN Reason: Pain Score 1-10/Temp > 100.7 F Enoxaparin Sodium (Enoxaparin 40 Mg/0.4 Ml Syringe) 40 mg SC DAILY [facility] Last Admin: 02/25/20 10:12 Dose: 40 mg Documented by: Melatonin (Melatonin 3 Mg Tablet) 3 mg PO QHS PRN PRN PRN Reason: INSOMNIA Ondansetron HCl (Ondansetron 4 Mg/2 Ml Vial) 4 mg IV Q8H PRN PRN PRN Reason: NAUSEA/VOMITING Last Admin: 02/25/20 00:36 Dose: 4 mg Documented by: Oxycodone HCl (Oxycodone 5 Mg Tablet) 5 mg PO Q4H PRN PRN PRN Reason: Pain Score 4-5 Oxycodone HCl (Oxycodone 5 Mg Tablet) 10 mg PO Q4H PRN PRN PRN Reason: Pain Score 6-10/10 Last Admin: 02/25/20 10:12 Dose: 10 mg Documented by: Senna/Docusate Sodium (Senna/Docusate Sodium 1 Tablet) 2 tablet PO BID PRN PRN PRN Reason: Constipation Last Admin: 02/25/20 10:12 Dose: 2 tablet Documented by: Sodium Chloride (0.9% Saline Lock 10 Ml Syringe) 10 - 40 ml IV UD PRN PRN Reason: SALINE FLUSH STROKE Vital Signs/Narrative: Vital Signs Temp Pulse Resp BP Pulse Ox 02/25/20 08:41 36.9 C 60 18 104/59 L 97 Medical Necessity - Tobacco Use Smoking Status: Never smoker Assessment/Plan All Active Problems (Last Reviewed 07/29/19 @ 09:15 by Darby Muñiz RN) T12 compression fracture (Acute) Intractable back pain (Acute) Intractable pain (Acute) 1. T12 fracture s/p fall. Retropulsion noted on CT. Check MRI. Continue with supportive mgmt. May need to start steroids. Continue with pain control. 2. VTE prophylaxis: enoxaparin. Inpatient E&M: 11973 Subs Hosp L1
[2020-02-25 14:30] LABS: Vitamin D,25 Hydroxy 21.8 ng/mL
[2020-02-25 14:32] VITALS: BP 128/74; PULSE 68; RESP 18; TEMP 37.2; O2SAT 98
[2020-02-25] MEDS: predniSONE 20 MG Tablet 60 MG PO (18:53)
[2020-02-25 21:45] VITALS: BP 120/57; PULSE 77; RESP 18; TEMP 36.7; O2SAT 95
[2020-02-25 21:54] VITALS: O2SAT 95
[2020-02-26] MEDS: oxyCODONE 5 MG Tablet 10 MG PO ×2 (01:00→08:37)
[2020-02-26 03:14] VITALS: BP 109/52; PULSE 71; RESP 18; TEMP 36.7; O2SAT 93
[2020-02-26 07:10] VITALS: O2SAT 91
[2020-02-26 08:29] VITALS: BP 130/50; PULSE 63; RESP 16; TEMP 36.8; O2SAT 95
[2020-02-26] MEDS: predniSONE 20 MG Tablet 60 MG PO (08:37)
--- NOTE | 2020-02-26 08:48 | CASEMGMT ---
Tertiary facilities in network with patient's insurance: [facility], [facility], [facility], [facility], [facility], ,
--- NOTE | 2020-02-26 08:53 | DS.PCM_ITS ---
Discharge Date and Diagnosis - Problem List Patient Problems: Active and Suspected Problems (Last Reviewed 07/29/19 @ 09:15 by Darby Muñiz RN) T12 compression fracture (Acute) Intractable back pain (Acute) Intractable pain (Acute) Date of Admission: 02/24/20 Date of Discharge: 02/26/20 - Primary Discharge Diagnosis Acute Problems: Active Problems (Last Reviewed 07/29/19 @ 09:15 by Darby Muñiz RN) T12 compression fracture (Acute) Intractable back pain (Acute) Intractable pain (Acute) Hospital Course and Treatment Imaging Results: Clinical Impression(s) from Imaging Studies Abdomen/Pelvis CT 02/24/20 18:09 IMPRESSION: 1. No pelvic free fluid or pneumoperitoneum. No hydronephrosis. 2. T12 compression fracture. 3. 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 Electronically Signed: Fran Scott MD (Brooks) at 18:57 EST , Service support , Brain CT 02/24/20 18:09 IMPRESSION: No acute cardiopulmonary process. Electronically Signed: Fran Scott MD (Brooks) at 18:52 EST , Service support , Cervical Spine CT 02/24/20 18:09 IMPRESSION: No cervical spine fracture. Electronically Signed: Fran Scott MD (Brooks) at 18:57 EST , Service support , Lumbar Spine CT 02/24/20 18:09 IMPRESSION: T12 compression fracture with mild retropulsion. Electronically Signed: Fran Scott MD (Brooks) at 18:58 EST , Service support , Thoracic Spine MRI 02/25/20 10:40 IMPRESSION: 1. T12 burst fracture, minimal posterior retropulsion without thecal sac stenosis. 2. Intact posterior ligamentous complex. Electronically Signed: Juan Alberto Baptiste, at 17:32 EST Tel , Service support , Operations: None Procedures: None Summary of Care Provided: The patient is a 59 year old F who was standing on a stool in her closet and then fell backwards landing directly on her back. Patient sustained acute pain in her back. Patient went to the emergency room and had a CAT scan of her neck and back and showed a T12 compression fracture with mild retropulsion. Patient had no neurologic sequelae other than just back pain. MRI was performed on the showed a T12 burst fracture with minimal posterior retropulsion without thecal sac stenosis. Evaluated patient today and again no neurologic sequelae. Patient just has back pain and able to get up due to pain. I ordered a back brace which is still yet to be obtained. I did speak with [facility] trauma service with a [place]. Explained the situation, mechanism fall and f indings on the MRI. He agreed to accept the patient to the trauma service and would have spine or neurosurgery evaluate the patient. Patient will require spinal precautions upon transfer. Patient was made aware of this. Patient be transferred as soon as a bed is available. [] Patient Problems: Active and Suspected Problems (Last Reviewed 07/29/19 @ 09:15 by Darby Muñiz RN) T12 compression fracture (Acute) Intractable back pain (Acute) Intractable pain (Acute) - Physical Exam Vitals/I&O's: Vital Signs Temp Pulse Resp BP Pulse Ox 36.8 C 63 16 130/50 H 95 02/26/20 08:29 02/26/20 08:29 02/26/20 08:29 02/26/20 08:29 02/26/20 08:29 Oxygen Delivery Method Room Air Weight: 60.4 kg Body Mass Index (BMI) 22.8 Intake and Output for Last 24 Hours 02/24/20 02/25/20 02/26/20 23:59 23:59 23:59 Intake Total 120 / 120 2250 / 2250 400 / 400 Output Total 100 / 100 2200 / 2200 770 / 770 Balance 50 / 50 -370 / -370 General: Alert, No apparent distress HEENT: Atraumatic, Normocephalic Oral: Moist Mucosa, No Gingival or Mucosal Lesions/ Ulcerations Neurological: Neuro grossly intact, Motor Exam 5/5 strength throughout, Sensory exam intact to light touch and pain Laboratory Results 02/24/20 18:20: Vitamin D 25-Hydroxy 21.8 Current Medications Acetaminophen (Acetaminophen 325 Mg Tablet) 650 mg PO Q6H PRN PRN PRN Reason: Pain Score 1-10/Temp > 100.7 F Enoxaparin Sodium (Enoxaparin 40 Mg/0.4 Ml Syringe) 40 mg SC DAILY [facility] Last Admin: 02/25/20 10:12 Dose: 40 mg Documented by: Ergocalciferol (Ergocalciferol 50,000 Unit Capsule) 50,000 unit PO Q7D [facility] Melatonin (Melatonin 3 Mg Tablet) 3 mg PO QHS PRN PRN PRN Reason: INSOMNIA Ondansetron HCl (Ondansetron 4 Mg/2 Ml Vial) 4 mg IV Q8H PRN PRN PRN Reason: NAUSEA/VOMITING Last Admin: 02/25/20 00:36 Dose: 4 mg Documented by: Oxycodone HCl (Oxycodone 5 Mg Tablet) 5 mg PO Q4H PRN PRN PRN Reason: Pain Score 4-5 Oxycodone HCl (Oxycodone 5 Mg Tablet) 10 mg PO Q4H PRN PRN PRN Reason: Pain Score 6-10/10 Last Admin: 02/26/20 08:37 Dose: 10 mg Documented by: Prednisone (Prednisone 20 Mg Tablet) 60 mg PO DAILY@0800 [facility] Last Admin: 02/26/20 08:37 Dose: 60 mg Documented by: Senna/Docusate Sodium (Senna/Docusate Sodium 1 Tablet) 2 tablet PO BID PRN PRN PRN Reason: Constipation Last Admin: 02/25/20 10:12 Dose: 2 tablet Documented by: Sodium Chloride (0.9% Saline Lock 10 Ml Syringe) 10 - 40 ml IV UD PRN PRN Reason: SALINE FLUSH Discharge Diet: No Restrictions Home Medications: Medications to take at Discharge NK 02/24/20 Primary Care Physician: Care Physician,No Primary [Primary Care Provider] - Disposition: Acute care Hospital Minutes spent on discharge:: 45 Patient Condition:: Stable Medical Necessity - Tobacco Use Smoking Status: Never smoker Meaningful Use Info Meaningful Use Diagnoses (Choose all that apply): None applicable Inpatient E&M: 91261 Disch Hosp
[2020-02-26 10:45] VITALS: BP 114/55; PULSE 77; RESP 18; TEMP 36.7; O2SAT 95
[2020-02-26] MEDS: HYDROmorphone 1 MG/ML Syringe IV (11:33)
[2020-02-26] MEDS: 0.9% Saline Lock 10 ML Syringe IV (11:34)
== END 2020-02-26 11:48 | disposition short-term general hospital (02) ==
LOC: ED 20:11 → MS3 20:26
PROVIDERS: Admitting Provider Hospitalist; Emergency Provider Emergency Medicine
DX: S22.081A Stable burst fracture of T11-T12 vertebra, initial encounter for closed fracture (principal); W17.89XA Other fall from one level to another, initial encounter; Y93.89 Activity, other specified; Y92.89 Other specified places as the place of occurrence of the external cause; Z85.3 Personal history of malignant neoplasm of breast; D27.1 Benign neoplasm of left ovary
CPT/HCPCS: 70450; 72125; 72131; 72146; 74176; 80053; 82306; 85025; 85610; 96372; 96374; 96375; 96376; 99218; 99283; A4216; G0378; J2405

== ENCOUNTER → 2021-10-11 | Outpatient (CLI) | payer BC, SELFPAY ==
[2019-07-29 09:12] VITALS: BMI 23.9
--- NOTE | 2021-10-11 09:08 | US_ITS ---
STUDY: ULTRASOUND BREAST - LEFT REASON FOR EXAM: Female, 61 years old. Palpable lump at the biopsy site. TECHNIQUE: Axial and longitudinal images of the LEFT breast were performed with a high resolution ultrasound transducer. # OF IMAGES: 59 COMPARISON: Comparison is made with prior mammograms in earlier in the day as well as prior ultrasound of the left breast dated 04/22/2019. FINDINGS: LEFT Breast: The upper half of the left breast was examined with ultrasound. No sonographic abnormality is seen. US/Breast Limited Unilateral IMPRESSION: No sonographic abnormality is seen. ASSESSMENT CATEGORY: BIRADS Category 1: Negative. A letter regarding these results will be sent to the patient by the facility within 30 days. Electronically Signed: González Summers MD at 11:48 EDT ,
--- NOTE | 2021-10-11 09:08 | BI_ITS ---
MAMMOGRAPHY - BILATERAL DIAGNOSTIC REASON FOR EXAM: Female, 61 years old. Prior left lumpectomy. Palpable abnormality at the lumpectomy site. PERTINENT HISTORY: Personal history of breast cancer. Sister with breast cancer. TECHNIQUE: Digital bilateral breast ace (3D mammographic acquisition) in the CC and MLO projections. 2-D mediolateral oblique (MLO) and craniocaudad (CC) views of both breasts were obtained. CAD: Full Field Digital Mammography with Computer Added Detection was performed. COMPARISON: Comparison is made with prior outside examination dated 06/01/2020 and 03/04/2019. FINDINGS: Breast Composition: The breasts are heterogeneously dense, which may obscure small masses. There are no dominant masses or suspicious calcifications. The patient is status post lumpectomy in the upper deep medial aspect of the left breast with resultant postoperative scarring. No other significant abnormalities are identified. BI/DIAG MAMM W/CAD, BILAT IMPRESSION: Stable bilateral diagnostic mammogram. Correlation with ultrasound of the left breast is recommended. ASSESSMENT CATEGORY: BIRADS Category 0: Incomplete. Need additional imaging evaluation. A letter regarding these results will be sent to the patient by the facility within 30 days. Approximately 10% of breast cancers are not detected by mammography. A normal mammogram should not delay biopsy of a clinically suspicious abnormality. Electronically Signed: González Summers MD at 11:23 EDT ,
== END | disposition home or self-care (01) ==
PROVIDERS: Visit Provider Internal Medicine Hematology & Oncology
DX: C50.212 Malignant neoplasm of upper-inner quadrant of left female breast (principal); Z17.0 Estrogen receptor positive status [ER+]; N64.4 Mastodynia; N63.20 Unspecified lump in the left breast, unspecified quadrant
CPT/HCPCS: 76642; 77062; 77066; G0279

== ENCOUNTER → 2022-05-30 | Outpatient (CLI) | payer BC, SELFPAY ==
[2019-07-29 09:12] VITALS: BMI 23.9
--- NOTE | 2022-05-30 11:55 | RAD_ITS ---
STUDY: X-RAY - THORACIC SPINE REASON FOR EXAM: Female, 62 years old. Pain. TECHNIQUE: 4 view(s) of the thoracic spine, including lateral flexion and extension views, were obtained on 6 images. COMPARISON: MRI of the thoracic spine dated January 2020. FINDINGS: Osteopenia. Increased kyphosis. Limited flexion and extension with no abnormal motion. Anterior wedge compression deformity of L1 unchanged from comparison MRI study. Endplate concavities compatible with osteoporosis. Mild diffuse intervertebral disc space narrowing with small osteophytes most marked in the lower thoracic spine. Normal soft tissues. RAD/Thoracic Spine Min 4 Views IMPRESSION: Osteopenia with limited flexion and extension and no abnormal motion. Stable anterior wedge compression deformity of L1. Endplate concavities compatible with osteoporosis. Diffuse mild thoracolumbar spondylosis. Electronically Signed: Tomi Crow, at 13:13 EST ,
== END | disposition home or self-care (01) ==
LOC: RAD 11:35
PROVIDERS: PCP Internal Medicine; Referring Provider Anesthesiology Pain Medicine; Visit Provider Anesthesiology Pain Medicine
DX: M51.34 Other intervertebral disc degeneration, thoracic region (principal)
CPT/HCPCS: 72074

== ENCOUNTER → 2022-10-17 | Outpatient (CLI) | payer BC, SELFPAY ==
[2019-07-29 09:12] VITALS: BMI 23.9
--- NOTE | 2022-10-17 09:51 | BI_ITS ---
MAMMOGRAPHY - BILATERAL SCREENING 3-D TOMOSYNTHESIS REASON FOR EXAM: Female, 62 years old. Routine screening PERTINENT HISTORY: Previous left lumpectomy TECHNIQUE: 2-D mammograms and 3-D Tomosynthesis of the breast (s) were performed. CAD was performed. COMPARISON: 06/01/2020 FINDINGS: The breast composition is heterogeneously dense that can obscure small breast masses. Scattered benign calcifications are seen. No dense spiculated masses or suspicious microcalcifications are identified. Stable architectural distortion from previous surgery. There is no skin thickening or retraction. There has been no significant change since the prior study. BI/SCRN MAMM (CAD)W/OCTAVIO BILAT IMPRESSION: No mammographic signs of malignancy. Routine yearly mammograms recommended. ASSESSMENT CATEGORY: BIRADS Category 2: Benign. A letter regarding these results will be sent to the patient by the facility within 30 days. FOLLOW UP RECOMMENDATION: Yearly follow up mammogram recommended. (A) Approximately 10% of breast cancers are not detected by mammography. A normal mammogram should not delay biopsy of a clinically suspicious abnormality. Electronically Signed: Adebayo Flower MD at 11:32 EDT ,
== END | disposition home or self-care (01) ==
LOC: OPBI 09:49
PROVIDERS: PCP Internal Medicine; Referring Provider Nurse Practitioner Family; Visit Provider Nurse Practitioner Family
DX: Z12.31 Encounter for screening mammogram for malignant neoplasm of breast (principal)
CPT/HCPCS: 77063; 77067

== ENCOUNTER → 2023-10-23 | Outpatient (CLI) | payer BC, SELFPAY ==
[2019-07-29 09:12] VITALS: BMI 23.9
--- NOTE | 2023-10-23 09:40 | US_ITS ---
STUDY: ULTRASOUND BREAST - LEFT REASON FOR EXAM: Female, 63 years old. Palpable lump left breast. TECHNIQUE: Axial and longitudinal images of the LEFT breast were performed with a high resolution ultrasound transducer. # OF IMAGES: 9 COMPARISON: Comparison is made with prior mammogram done earlier in the day. FINDINGS: LEFT Breast: The upper inner quadrant of the left breast was examined with ultrasound. There is dense fibroglandular tissue. No sonographic abnormality is seen. US/Breast Limited Unilateral IMPRESSION: No sonographic abnormality is seen. ASSESSMENT CATEGORY: BIRADS Category 1: Negative. A letter regarding these results will be sent to the patient by the facility within 30 days. Electronically Signed: González Summers MD at 15:16 EDT ,
--- NOTE | 2023-10-23 09:40 | BI_ITS ---
MAMMOGRAPHY - BILATERAL DIAGNOSTIC REASON FOR EXAM: Female, 63 years old. Palpable lump at the site of prior lumpectomy. PERTINENT HISTORY: Personal history of breast cancer. Prior left lumpectomy. TECHNIQUE: Digital bilateral breast ace (3D mammographic acquisition) in the CC and MLO projections. 2-D mediolateral oblique (MLO) and craniocaudad (CC) views of both breasts were obtained. CAD: Full Field Digital Mammography with Computer Added Detection was performed. COMPARISON: Comparison is made with prior mammogram dated October 17, 2022. FINDINGS: Breast Composition: The breasts are heterogeneously dense, which may obscure small masses. There are no dominant masses or suspicious calcifications. Once again, the patient is status post lumpectomy in the upper deep lateral medial aspect of the left breast. There is evidence of a 1.1 cm fat-containing nodule corresponding to the palpable abnormality in the upper deep medial aspect of the left breast most likely representing a postoperative fat necrosis. Surgical clips are seen in the left axilla. Stable calcifications and a small nodule in the deep central medial aspect of the right breast. No other significant abnormalities are identified. There has been no significant change since the prior study. BI/DIAG MAMM W/CAD, BILAT IMPRESSION: Stable bilateral diagnostic mammogram. With the patient''s history of a palpable lump in the upper inner quadrant of the left breast, correlation with ultrasound is recommended. ASSESSMENT CATEGORY: BIRADS Category 0: Incomplete. Need additional imaging evaluation. A letter regarding these results will be sent to the patient by the facility within 30 days. Approximately 10% of breast cancers are not detected by mammography. A normal mammogram should not delay biopsy of a clinically suspicious abnormality. Electronically Signed: González Summers MD at 13:25 EDT ,
== END | disposition home or self-care (01) ==
LOC: OPBI 09:26
PROVIDERS: PCP Internal Medicine; Referring Provider Internal Medicine; Visit Provider Internal Medicine
DX: C50.912 Malignant neoplasm of unspecified site of left female breast (principal); N64.4 Mastodynia
CPT/HCPCS: 76642; 77062; 77066; G0279

== ENCOUNTER 2023-12-26 01:36 | Emergency (ER) | payer BC, SELFPAY ==
[2019-07-29 09:12] VITALS: BMI 23.9
[2023-12-26 01:37] VITALS: BP 141/74; PULSE 62; RESP 19; TEMP 36.8; O2SAT 98; BMI 23.0
--- NOTE | 2023-12-26 02:25 | RAD_ITS ---
EXAM: XR CHEST, 2 VIEWS CLINICAL INDICATION: COUGH TECHNIQUE: Frontal and lateral views of the chest. COMPARISON: No relevant prior studies available. FINDINGS: LUNGS AND PLEURAL SPACES: Unremarkable. No consolidation or edema. No pneumothorax. No effusion. HEART: Unremarkable. Cardiac silhouette not enlarged. MEDIASTINUM: Central airways and mediastinal contour are unremarkable. BONES/JOINTS: Unremarkable. No acute fracture. SOFT TISSUES: Surgical clips in the left axillary region. RAD/Chest PA and Lateral IMPRESSION: No acute findings in the chest. Electronically Signed: Gianni Martinez MD at 3:22 EDT ,
--- NOTE | 2023-12-26 02:25 | CT_ITS ---
EXAM: CT HEAD WITHOUT INTRAVENOUS CONTRAST CLINICAL INDICATION: TAPIA TECHNIQUE: Multiple axial images were obtained of the head without intravenous contrast. This CT exam was performed using one or more of the following dose reduction techniques: automated exposure control, adjustment of the mA and/or kV according to patient size, and/or use of iterative reconstruction technique. RADIATION DOSE: CTDIvol = 44.99 mGy, DLP = 1575.35 mGy-cm COMPARISON: Head CT from 02/24/2020 FINDINGS: BRAIN AND EXTRA-AXIAL SPACES: Hydrocephalus, new compared to the previous examination with dilation of the lateral and third ventricles. Some increased density in the expected location of the pineal gland which could indicate an obstructing lesion. No intra- or extra-axial hemorrhage. No evidence of acute infarct. There is preservation of the fleming/white matter interface. Posterior fossa structures are unremarkable. Basal cisterns are patent. BONES/JOINTS: Unremarkable. No discrete lytic or blastic abnormalities. SINUSES: Unremarkable as visualized. Clear. MASTOID AIR CELLS: Unremarkable. Clear. ORBITS: Visualized globes, extraocular muscles, optic nerves and retrobulbar fat appear unremarkable. CT/Brain/Head without Contrast IMPRESSION: Hydrocephalus, new compared to the previous examination with dilation of the lateral and third ventricles. This could indicate aqueduct stenosis, but there is some increased density in the expected location of the pineal gland which could indicate an obstructing lesion. N.B. : The above Results were Read Back by Gianni Martinez MD to Gustavo Mueller DO, and understanding confirmed on 12/26/2023 03:30:56 (ET). Electronically Signed: Gianni Martinez MD at 3:29 EDT ,
--- NOTE | 2023-12-26 02:26 | EKG12_ITS ---
Test Reason : Blood Pressure : / mmHG Vent. Rate : 068 BPM Atrial Rate : 068 BPM P-R Int : 170 ms QRS Dur : 084 ms QT Int : 424 ms P-R-T Axes : 059 035 059 degrees QTc Int : 450 ms Normal sinus rhythm Normal ECG Confirmed by DEMIAN BACON MD ([id number]), fashion editor CHLOE PEPPER ([id number]) on 12/29/2023 7:29:27 AM Referred By: Confirmed By:DEMIAN BACON MD
[2023-12-26 02:35] LABS: Absolute Lymphocyte Count 2.26 X10^3/uL (0.83-4.51); Absolute Neutrophil Count 4.5 X10^3/uL (2.0-7.7); Basophil# 0.05 X10^3/uL; Basophil% 0.6 % (0-1); Eosinophil# 0.09 X10^3/uL; Eosinophils% 1.1 % (0-5); Hematocrit 38.5 % (37-47); Hemoglobin 12.3 g/dL (12.0-15.0); Lymphocyte # 2.26 X10^3/ul (0.83-4.51); Lymphocyte % 28.8 % (19-41); Mean Corp Hgb Conc 31.9 g/dL (32-36); Mean Corpuscular Hgb 25.7 pg (27.0-32.0); Mean Corpuscular Volume 80.5 fL (81-99); Mean Platelet Vol. 10.3 fl (6.2-12.0); Monocyte# 0.99 X10^3/uL; Monocyte% 12.6 % (0-10); NRBC Flagged by Analyzer 0 % (0-5); Neutrophil # 4.45 X10^3/uL (2.7-7.7); Neutrophil % 56.6 % (47-70); Platelet Count 371 K/mm3 (150-450); RBC Distribution Width CV 14.8 % (11.6-14.6); RBC Distribution Width SD 43.4 fl (35.1-43.9); Red Blood Count 4.78 M/mm3 (4.2-5.4); White Blood Count 7.9 K/mm3 (4.4-11.0)
--- NOTE | 2023-12-26 02:36 | EDS_ITS ---
HPI History of Present Illness Chief Complaint: Headache Narrative Narrative: Patient is a 63-year-old female with past medical history of hyperlipidemia who presents to the emerged part with a chief complaint of headache. Patient states that she has had a headache going on and off for the past week. She states that she followed up with her primary care physician and was diagnosed with an ear infection and she was placed on amoxicillin and prednisone. She states that she had follow-up with an ears nose and throat physician yesterday and noted that they told her she does not have an ear infection and to discontinue this antibiotic. They did order a CT head which is scheduled in the next several weeks in the outpatient setting by the ears nose and throat physician. Patient states that she was trying to take an arthritis medication for her pain however things did not seem to be improving. States that tonight she could not sleep which prompted her here for further evaluation management. Patient denies recent sick contacts. Denies any recent travel denies any history of blood clots. [facility] Medical History Cysts of both ovaries Mixed hyperlipidemia Chest pain Intractable pain Intractable back pain T12 compression fracture Intractable pain Encounter for education Breast cancer, left (~05/2019) Home Medications ?Medication ?Instructions ?Recorded ?Last Taken ?Type ascorbic acid (vitamin C) 100 mg 100 mg PO DAILY 08/09/22 Unknown History chewable tablet calcium citrate 315 mg 1 tab PO DAILY 08/09/22 Unknown History calcium-vitamin D3 6.25 mcg (250 unit) tablet (Citracal + Vitamin D Maximum) cholecalciferol (vitamin D3) 50 50 mcg PO DAILY 08/09/22 Unknown History mcg (2,000 unit) tablet flaxseed oil 5 ml miscellaneous .QOD 08/09/22 Unknown History turmeric 400 mg capsule 400 mg PO DAILY 08/09/22 Unknown History vitamin B complex 1 tab PO DAILY 08/09/22 Unknown History vitamin E (dl, acetate) 45 mg (100 45 mg PO DAILY 08/09/22 Unknown History unit) capsule aspirin 81 mg tablet,delayed 81 mg PO DAILY 04/24/23 Unknown History release (Adult Aspirin Regimen) Allergy/AdvReac Type Severity Reaction Status Date / Time chlorhexidine Allergy Mild Rash Verified 12/26/23 01:37 Family History Sister Breast cancer Father Heart disease Mother Diabetes Myocardial infarction, Onset Age: 50 Brother Mixed hyperlipidemia Surgical History History of varicose vein stripping History of lumpectomy History of left breast biopsy (~05/2019) History of carpal tunnel surgery of right wrist History of surgical removal of ganglion cyst History of colonoscopy (~2011) Social History Smoking Status: Never smoker alcohol intake: current substance use type: does not use ROS ROS ED ROS Narrative Constitutional: Complains of headache as noted above denies fevers, chills, lightheadedness, Eyes: Denies change in vision double vision blurry vision Cardiovascular: Denies chest pain or palpitations Respiratory: Denies coughing wheezing shortness of breath Abdomen: Denies abdominal pain nausea vomit diarrhea : Denies any urinary symptoms Neurological: Denies numbness, weakness, tingling Musculoskeletal: Denies back pain Skin: Denies rashes or lesions EXAM Physical Exam Narrative Exam Narrative: General: Patient lying in bed rest comfortably did not appear to be acute distress Head: Atraumatic, normocephalic Eyes: PERRL bilateral, EOMI bilateral, no conjunctival injection noted Neck: Soft, supple, trach midline, patient has full range of motion of her neck no concern for meningitis Cardiovascular: Regular rate and rhythm no murmurs gallops rubs noted Respiratory: Clear to auscultation bilaterally no rales rhonchi or wheeze noted Abdomen: Soft, nondistended, nontender to palpation, bowel sounds present x 4 Extremities: +5/5 strength noted in the bilateral upper and lower extremities, no pedal edema on exam Neurological: Patient following commands knew that she was at [facility] year is 2023. Patient completed finger-nose test bilaterally for any difficulty, sensation grossly intact, NIH of 0 GCS 15 Skin: Warm, dry, tact Const Vital Signs: 12/26/23 01:37 12/26/23 03:37 12/26/23 05:00 Temperature 98.3 F Temperature Source Oral Pulse Rate 62 56 L 56 L Respiratory Rate 19 H 18 16 Blood Pressure 141/74 H 117/62 110/60 Blood Pressure Mean 96 80 76 Pulse Ox 98 99 98 Oxygen Delivery Method Room Air Room Air MDM MDM MDM Narrative Medical decision making narrative: Patient is a 63-year-old female who presented to the emerged part with chief c omplaint of headache. Patient will have a workup performed here on the differential diagnose includes but not limited to intracranial hemorrhage, tumor, tension headache, migraine headache. Once workup is obtained and reviewed she will be reevaluated. Patient be given Tylenol, Reglan, IV fluids and then be reevaluated. Patient CBC reviewed and was largely unremarkable no evidence leukocytosis white blood count normal at 7.9, hemoglobin stable at 12.3, platelet count normal at 371. Patient sodium normal at 141, potassium low at 4.1, creatinine normal at 0.57. Patient's urinalysis did not reveal any evidence of infection. Patient's chest x-ray was reviewed and showed no acute cardiopulmonary processes. Patient CT head and brain without contrast reviewed and showed hydrocephalus which was new when compared to previous examination with dilation of the lateral and third ventricles. Concern for aqueduct stenosis and there is increased in density in the expected location of the pineal gland which could be the obstructing lesion. There is no neurosurgery here therefore called [facility] And this will be a 3-day wait called [facility] and spoke with their neurosurgeon Dr. Berger who is recommending transfer to [facility] given the location of the lesion. Discussed case with [facility] neurosurgeon Dr. Patiño who states that the patient can go to the ER or ER and be evaluated further. Discussed the case with the emergency physician Dr. Crow who is aware of the patient. Patient was notified that should be on ER his hospital course concerns answered bedside. Lab Data Labs: Laboratory Results - last 24 hr 12/26/23 12/26/23 01:46 02:40 WBC 7.9 RBC 4.78 Hgb 12.3 Hct 38.5 MCV 80.5 L MCH 25.7 L MCHC 31.9 L RDW Std Deviation 43.4 RDW Coeff of Amanda 14.8 H Plt Count 371 MPV 10.3 Immature Gran % (Auto) 0.300 Neut % (Auto) 56.6 Lymph % (Auto) 28.8 Mccone % (Auto) 12.6 H Eos % (Auto) 1.1 Baso % (Auto) 0.6 Absolute Neuts (auto) 4.5 Absolute Lymphs (auto) 2.26 Nucleated RBC % 0 Sodium 141 Potassium 4.1 Chloride 109 H Carbon Dioxide 27.0 Anion Gap 5 BUN 13 Creatinine 0.57 Estim Creat Clear Calc 88.37 Est GFR (MDRD) Af Amer 137 Est GFR (MDRD) Non-Af 114 BUN/Creatinine Ratio 22.7 H Glucose 95 Calcium 9.1 Urine Color Yellow Urine Clarity Clear Urine pH 8.0 Ur Specific Hart 1.010 Urine Protein Negative Urine Glucose (UA) Normal Urine Ketones Negative Urine Occult Blood Negative Urine Nitrite Negative Urine Bilirubin Negative Urine Urobilinogen Normal Ur Leukocyte Esterase Negative Urine RBC 0 SEEN Urine WBC 0 SEEN Ur Squamous Epith Cells 0 SEEN Amorphous Sediment 3+ Urine Bacteria 0 SEEN Urine Mucus 0 SEEN Radiography Diagnostic Testing: Clinical Impression(s) from Imaging Studies Brain CT 12/26/23 02:25 IMPRESSION: Hydrocephalus, new compared to the previous examination with dilation of the lateral and third ventricles. This could indicate aqueduct stenosis, but there is some increased density in the expected location of the pineal gland which could indicate an obstructing lesion. N.B. : The above Results were Read Back by Gianni Martinez MD to Gustavo Mueller DO, and understanding confirmed on 12/26/2023 03:30:56 (ET). Electronically Signed: Gianni Martinez MD at 3:29 EDT Reading Location ID and State: [address] [place] [address] Tel , Service support , Chest X-Ray 12/26/23 02:25 IMPRESSION: No acute findings in the chest. Electronically Signed: Gianni Martinez MD at 3:22 EDT , Discharge Plan Triage Chief Complaint: Headache ED Provider: Gustavo Mueller Dx/Rx/DC Orders Clinical Impression: Headache, Hydrocephalus Prescriptions: No Action cholecalciferol (vitamin D3) 50 mcg (2,000 unit) tablet 50 mcg PO DAILY vitamin B complex Tablet 1 tab PO DAILY calcium citrate-vitamin D3 [Citracal + D Maximum] 315 mg-6.25 mcg (250 unit) tablet 1 tab PO DAILY ascorbic acid (vitamin C) 100 mg tablet,chewable 100 mg PO DAILY turmeric 400 mg capsule 400 mg PO DAILY vitamin E (dl, acetate) 45 mg (100 unit) capsule 45 mg PO DAILY flaxseed oil Oil 5 ml miscellaneous .QOD aspirin [Adult Aspirin Regimen] 81 mg tablet,delayed release (DR/EC) 81 mg PO DAILY Primary Care Provider: Marisa Delcid NP Referrals: Marisa Delcid NP, [facility] [Primary Care Provider] - Print Language: Latvian Disposition Disposition: DC/Tx to Another Type of HCF
[2023-12-26] MEDS: 0.9% Normal Saline (1000mL) 1,000 ML 999 ML IV (02:43)
[2023-12-26] MEDS: Acetaminophen 500 MG Tablet 1000 MG PO (02:43)
[2023-12-26] MEDS: Metoclopramide 10 MG/2 ML Vial IV (02:44)
[2023-12-26] MEDS: DiphenhydrAMINE 50 MG/ML Syringe 25 MG IV (02:45)
[2023-12-26 02:49] LABS: Anion Gap 5 (5-15); BUN 13 mg/dL (7-18); BUN/Creat Ratio 22.7 RATIO (10-20); Calcium,Total 9.1 mg/dL (8.5-10.1); Chloride 109 mmol/L (98-107); Creatinine, Serum 0.57 mg/dL (0.55-1.02); EST Glomerular Filtration Rate 114 mL/min (>60); Est Glom Filt Rate - Afr Amer 137 mL/min (>60); Estimated Creatinine Clearance 88.37 ml/min; Glucose 95 mg/dL (74-106); Potassium 4.1 mmol/L (3.5-5.1); Sodium Level 141 mmol/L (136-145)
[2023-12-26 02:50] LABS: Bacteria 0 SEEN /hpf (None Seen); Mucous, Urine 0 SEEN /hpf (<or=2+); Red Blood Cells-Urine 0 SEEN /hpf (0-5); Squamous Epithelial Cells - UA 0 SEEN /hpf (5-10); White Blood Cells 0 SEEN /hpf (0-5)
[2023-12-26 02:53] LABS: Color, Urine Yellow (Yellow); Glucose, Dipstick Normal (Normal); Ketone-Dipstick Negative (Negative); Leukocyte Esterase-Dipstick Negative /ul (Negative); Nitrite-Dipstick Negative (Negative); Occult Blood-Urine Negative /ul (Negative); Protein-Dipstick Negative (Negative); Urine Bilirubin Dipstick Negative (Negative); Urine Clarity Clear (Clear); Urine Urobilinogen Normal (Normal)
[2023-12-26 03:02] LABS: Amorphous Sediment 3+
[2023-12-26 03:37] VITALS: BP 117/62; PULSE 56; RESP 18; O2SAT 99
[2023-12-26 05:00] VITALS: BP 110/60; PULSE 56; RESP 16; O2SAT 98
--- NOTE | 2023-12-26 05:58 | ED.RN ---
CALL TO [facility] REPORTS PTS ARE ON A WAITLIST WITH A 3+ DAY WAIT. PER DR. FONTAINE, PT CANNOT WAIT THAT LONG. CALL TO [facility], DR. FONTAINE SPOKE TO NEUROSURGERY, THEY REPORT THAT DUE TO LOCATION OF LESION, THEY ARE UNABLE TO OPERATE. CALL PLACED TO IN [place].
[2023-12-26 06:43] VITALS: BP 121/55; PULSE 58; RESP 16; TEMP 36.7; O2SAT 100
[2023-12-26 07:13] VITALS: BP 107/67; PULSE 60; RESP 16; O2SAT 98
== END 2023-12-26 08:39 | disposition other institution (70) ==
PROVIDERS: Emergency Provider Emergency Medicine; PCP Internal Medicine; Visit Provider Emergency Medicine
DX: G91.9 Hydrocephalus, unspecified (principal); E78.2 Mixed hyperlipidemia; E87.6 Hypokalemia; Z79.82 Long term (current) use of aspirin; Z85.3 Personal history of malignant neoplasm of breast
CPT/HCPCS: 70450; 71046; 80048; 81001; 85025; 87631; 93005; 96361; 96374; 96375; 99284; J7030; A4216

== ENCOUNTER 2024-01-15 20:16 | Emergency (ER) | payer BC, SELFPAY ==
[2019-07-29 09:12] VITALS: BMI 23.9
--- NOTE | 2024-01-15 20:20 | EKG12_ITS ---
Test Reason : STROKE Blood Pressure : / mmHG Vent. Rate : 083 BPM Atrial Rate : 083 BPM P-R Int : 146 ms QRS Dur : 078 ms QT Int : 392 ms P-R-T Axes : 049 -05 045 degrees QTc Int : 460 ms Normal sinus rhythm Minimal voltage criteria for LVH, may be normal variant ( Surjit product ) Borderline ECG Confirmed by Moo Llanos ([id number]), news videotape editor RAÚL DELATORRE ([id number]) on 01/16/2024 1:40:49 PM Referred By: Confirmed By:Moo Llanos
--- NOTE | 2024-01-15 20:20 | CT_ITS ---
EXAMINATION : Head CT w/out contrast HISTORY : ams COMPARISON : None. TECHNIQUE : Multiple contiguous axial images were obtained from the skull base to the vertex without intravenous contrast. A radiation dose optimization technique was used for this scan. FINDINGS : There is no evidence for acute intracranial hemorrhage, mass effect, or midline shift. There is no extra-axial fluid collection. There are periventricular white matter changes consistent with chronic microvascular ischemic disease. There is sulcal widening and ventricular enlargement consistent with cerebral atrophy. There is normal -white differentiation, without CT evidence of acute ischemia or infarct. The skull base and calvarium are unremarkable. The orbits are unremarkable. The paranasal sinuses are clear. The mastoid air cells are well-aerated. The soft tissues are unremarkable. CT/Brain/Head without Contrast IMPRESSION: No acute intracranial abnormality. Chronic involutional and ischemic changes of the brain. Electronically Signed: Prabhakar Hendrix MD at 20:32 EDT ,
--- NOTE | 2024-01-15 20:23 | RAD_ITS ---
INDICATION: syncope EXAMINATION/TECHNIQUE: X-RAY - XR Chest 1 View COMPARISON: 12/26/2023. FINDINGS: The lungs are clear. Tortuous and calcified thoracic aorta. The heart is not enlarged. No pleural effusion or pneumothorax. Degenerative changes of the thoracic spine. RAD/Chest 1 View (Portable) IMPRESSION: No acute radiographic abnormalities. Electronically Signed: Prabhakar Hendrix MD at 20:33 EDT ,
[2024-01-15 20:31] VITALS: PULSE 85; RESP 19; TEMP 36.2; O2SAT 97; BMI 20.4
[2024-01-15 20:32] VITALS: BP 154/70; PULSE 80; RESP 15; TEMP 36.2; O2SAT 98
--- NOTE | 2024-01-15 20:43 | ED.RN ---
THIS RN HAD TROUBLES LOGGING INTO THE COMPUTER SO CHARTING WAS DELAYED. LILIAM CANO, WORKFORCE ADVISOR ALSO HAD TROUBLES LOGGING IN. IT IS AWARE. DR DUNN IS AWARE AND DOES NOT WANT TO DO THE ROBOT DUE TO THE PATIENTS BRAIN CANCER. THIS RN WILL FOLLOW HIS ORDERS.
--- NOTE | 2024-01-15 20:46 | ED.RN ---
FAMILY IS REFUSING CARDIAC LEADS AND BP CUFF
[2024-01-15 20:47] VITALS: BMI 20.4
[2024-01-15 20:57] LABS: Absolute Lymphocyte Count 0.29 X10^3/uL (0.83-4.51); Absolute Neutrophil Count 6.8 X10^3/uL (2.0-7.7); Basophil# 0.01 X10^3/uL; Basophil% 0.1 % (0-1); Hematocrit 40.8 % (37-47); Hemoglobin 13.6 g/dL (12.0-15.0); Lymphocyte # 0.29 X10^3/ul (0.83-4.51); Lymphocyte % 3.7 % (19-41); Mean Corp Hgb Conc 33.3 g/dL (32-36); Mean Corpuscular Hgb 26.1 pg (27.0-32.0); Mean Corpuscular Volume 78.3 fL (81-99); Mean Platelet Vol. 10.3 fl (6.2-12.0); Monocyte# 0.62 X10^3/uL; Monocyte% 7.9 % (0-10); NRBC Flagged by Analyzer 0 % (0-5); Neutrophil # 6.83 X10^3/uL (2.7-7.7); Neutrophil % 87.7 % (47-70); POSITIVE COUNT YES; POSITIVE DIFFERENTIAL YES; RBC Distribution Width CV 14.2 % (11.6-14.6); RBC Distribution Width SD 40.6 fl (35.1-43.9); Red Blood Count 5.21 M/mm3 (4.2-5.4); White Blood Count 7.8 K/mm3 (4.4-11.0)
[2024-01-15 21:05] LABS: Prothrombin Time (Protime)PT. 13.4 SECONDS (11.7-14.9)
[2024-01-15 21:13] LABS: AST(SGOT) 20 U/L (15-37); Alanine Aminotransfer ALT/SGPT 107 U/L (13-56); Albumin, Serum 3.5 g/dL (3.2-5.0); Alkaline Phosphatase 137 U/L (45-117); Anion Gap 8 (5-15); BUN 14 mg/dL (7-18); Bilirubin, Direct 0.15 mg/dL (0.00-0.30); Calcium,Total 9.8 mg/dL (8.5-10.1); Chloride 95 mmol/L (98-107); EST Glomerular Filtration Rate 133 mL/min (>60); Est Glom Filt Rate - Afr Amer 160 mL/min (>60); Estimated Creatinine Clearance 99.45 ml/min; Glucose 154 mg/dL (74-106); Potassium 4.6 mmol/L (3.5-5.1); Protein, Total 7.5 g/dL (6.4-8.2); Sodium Level 129 mmol/L (136-145); Troponin-I HS 11 pg/mL (3.0-54.0)
[2024-01-15 21:16] VITALS: BP 154/70
[2024-01-15] MEDS: Ondansetron 4 MG/2 ML Vial IV (21:23)
[2024-01-15] MEDS: Morphine 2 MG/ML Syringe IV (21:24)
[2024-01-15] MEDS: LORazepam 2 MG/ML Syringe 1 MG IV (21:25)
[2024-01-15 21:31] LABS: Partial Thromboplast Time < 24.1 Seconds (24.1-36.2)
--- NOTE | 2024-01-15 21:31 | ED.RN ---
Phone call placed to [facility], they will be sending a nurse to see patient. Since pt is already established hospice pt, she can be sent to [facility].
[2024-01-15 21:44] LABS: Differential Indicated SCAN CRITERIA MET
[2024-01-15 21:47] LABS: Platelet Estimate ADEQUATE (ADEQ)
[2024-01-15 22:00] VITALS: PULSE 71; RESP 18; O2SAT 91
--- NOTE | 2024-01-15 22:00 | EX.ED.DYSGE1 ---
HPI History of Present Illness Chief Complaint: Stroke Alert Informant: patient, spouse/S.O. and family Narrative Narrative: 63-year-old female presenting to the emergency room as a prehospital stroke alert. Patient has been recently diagnosed with metastatic breast cancer including lesion to the brain causing hydrocephalus. She had been transferred to [facility] where she was inpatient and then began outpatient radiation therapy this week with [facility] locally. Currently seeing [facility]. Today patient and her visited with hospice. She has not yet begun any medications formal treatment with them. notes that she has basically become bedbound and has been having decreased sensation on the right side of her body. She has not however had any seizures. Tonight he states that her eyes rolled back in her head and her left arm was drawn up and was tight the right arm also since seen drawn at the wrist and she had tears coming down from her eyes. She was not responsive. Original call the EMS was for full arrest but then she improved by time EMS arrived. Patient's notes that they do wish hospice care. He had called hospice and they stated that somebody would be out and about 3 hours that he did not know what to do and she seemed uncomfortable so he called EMS. [facility] Medical History Cysts of both ovaries Mixed hyperlipidemia Chest pain Intractable pain Intractable back pain T12 compression fracture Intractable pain Encounter for education Breast cancer, left (~05/2019) Home Medications ?Medication ?Instructions ?Recorded ?Last Taken ?Type ascorbic acid (vitamin C) 100 mg 100 mg PO DAILY 08/09/22 Unknown History chewable tablet calcium 315 mg (as 1 tab PO DAILY 08/09/22 Unknown History citrate)-vitamin D3 6.25 mcg (250 unit) tablet (Citracal + Vitamin D Maximum) cholecalciferol (vitamin D3) 50 50 mcg PO DAILY 08/09/22 Unknown History mcg (2,000 unit) tablet flaxseed oil 5 ml miscellaneous .QOD 08/09/22 Unknown History turmeric 400 mg capsule 400 mg PO DAILY 08/09/22 Unknown History vitamin B complex 1 tab PO DAILY 08/09/22 Unknown History vitamin E (dl, acetate) 45 mg (100 45 mg PO DAILY 08/09/22 Unknown History unit) capsule aspirin 81 mg tablet,delayed 81 mg PO DAILY 04/24/23 Unknown History release (Adult Aspirin Regimen) Allergy/AdvReac Type Severity Reaction Status Date / Time chlorhexidine Allergy Mild Rash Verified 12/26/23 01:37 Family History Sister Breast cancer Father Heart disease Mother Diabetes Myocardial infarction, Onset Age: 50 Brother Mixed hyperlipidemia Surgical History History of varicose vein stripping History of lumpectomy History of left breast biopsy (~05/2019) History of carpal tunnel surgery of right wrist History of surgical removal of ganglion cyst History of colonoscopy (~2011) Social History Smoking Status: Never smoker alcohol intake: current substance use type: does not use ROS ROS ED Constitutional Constitutional ED: Denies chills, fever(s) or weight loss Eyes Eyes: Denies change in vision or diplopia ENT ENT ED: Denies ear pain, rhinorrhea or sore throat Cardiovascular Cardiovascular: Denies chest pain, orthopnea, palpitations or racing heartbeat Respiratory/Chest Respiratory/Chest: Denies cough, dyspnea or orthopnea Gastrointestinal Gastrointestinal: Denies abdominal pain, diarrhea, nausea or vomiting Genitourinary Genitourinary ED: Denies dysuria, hematuria or urinary frequency Musculoskeletal Musculoskeletal: Denies arthralgias or myalgias Integumentary Denies abscess or rash Neurologic Neurologic: Reports headache(s), paresthesias, weakness and other Details: Possible seizure Psychiatric Psychiatric: Denies anxiety, depression, suicidal ideation or suicidal thoughts Endocrine Endocrinology: Denies polydipsia, polyphagia or polyuria Allergic/Immunologic Allergic/Immunologic ED: Denies mouth swelling, tongue swelling or urticaria EXAM Physical Exam Narrative Exam Narrative: Patient appears globally weak Const Vital Signs: 01/15/24 20:31 01/15/24 20:32 01/15/24 21:16 Temperature 97.2 F L 97.2 F L Temperature Source Temporal Temporal Pulse Rate 85 80 Respiratory Rate 19 H 15 Blood Pressure 154/70 H 154/70 H Blood Pressure Mean 98 98 Pulse Ox 97 98 Oxygen Delivery Method Room Air Room Air 01/15/24 22:00 01/15/24 23:00 Temperature Temperature Source Pulse Rate 71 75 Respiratory Rate 18 20 H Blood Pressure Blood Pressure Mean Pulse Ox 91 96 Oxygen Delivery Method Room Air Room Air Positive well nourished and well developed General Appearance ED: well developed and NAD HEENT Reports normocephalic, head/scalp atraumatic and moist mucous membranes Eyes PERRL and EOMs intact bilaterally Neck no lymphadenopathy, supple and no JVD Resp normal respiratory effort and clear to auscultation bilaterally Cardio regular rate, regular rhythm and no murmurs GI normal to inspection, nondistended, normoactive bowel sounds and non-tender Palpation: soft Back/Spine no CVA tenderness and normal ROM Extremity normal to inspection General Extremety ED: Negative for edema General Extremity: Negative for edema Neuro oriented x3 and CN's II-XII intact bilaterally Neuro Narrative: On my examination I get right greater than left weakness. [employer] strength is less. I really cannot get her to fully keep her legs up on either side or arms up on either side. I do not appreciate facial droop. She does speak though minimally. She notes decreased sensation in the right arm right leg Sensorium / Orientation: alert Motor Exam: general weakness Psych Mood & Affect: Negative for depressed or tearful Skin no rashes or lesions noted and no wounds MDM MDM MDM Narrative Medical decision making narrative: Differential diagnosis includes but not limited to stroke seizure electrolyte abnormality intracranial hemorrhage I met the patient in the ambulance bay and she was taken for initial head CT which does not reveal anything acute. She was brought back to the room. My independent interpretation of the chest x-ray is no acute process. Basic blood work shows a sodium of 129 creatinine 0.50 alkaline phosphatase of 137 troponin of 11 lactic acid is 2 glucose 154. EKG shows a normal sinus rhythm at a rate of 83 no significant change from prior dated 26 December 2023. I spoke with the patient her and family at the bedside. We are going to continue the spirit of hospice. I will give her some Ativan and pain nausea medication. I spoke with our hospitalist as well as hospice we feel that she may be appropriate for inpatient hospice. We will work towards this goal family is comfortable with this. I filled out a formal DNR comfort care only paperwork. History & Record Review Discussion w/independent historian: EMS personnel, Patient, Family and Significant other Additional record(s) reviewed:: Prior ED visit and Prior labs Lab Data Attestation: I reviewed the patient's lab results. Labs: Laboratory Results - last 24 hr 01/15/24 20:40 WBC 7.8 RBC 5.21 Hgb 13.6 Hct 40.8 MCV 78.3 L MCH 26.1 L MCHC 33.3 RDW Std Deviation 40.6 RDW Coeff of Amanda 14.2 MPV 10.3 Immature Gran % (Auto) 0.600 Neut % (Auto) 87.7 H Lymph % (Auto) 3.7 L Lanier % (Auto) 7.9 Eos % (Auto) 0.0 Baso % (Auto) 0.1 Absolute Neuts (auto) 6.8 Absolute Lymphs (auto) 0.29 L Nucleated RBC % 0 Platelet Estimate ADEQUATE PT 13.4 INR 1.0 APTT < 24.1 L Sodium 129 L Potassium 4.6 Chloride 95 L Carbon Dioxide 26.0 Anion Gap 8 BUN 14 Creatinine 0.50 L Estim Creat Clear Calc 99.45 Est GFR (MDRD) Af Amer 160 Est GFR (MDRD) Non-Af 133 BUN/Creatinine Ratio 28.0 H Glucose 154 H Lactic Acid 2.0 Calcium 9.8 Total Bilirubin 0.50 Direct Bilirubin 0.15 AST 20 ALT 107 H Alkaline Phosphatase 137 H Troponin I High Sens 11 Total Protein 7.5 Albumin 3.5 Globulin 4.0 Radiography Diagnostic Testing: Clinical Impression(s) from Imaging Studies Brain CT 01/15/24 20:20 IMPRESSION: No acute intracranial abnormality. Chronic involutional and ischemic changes of the brain. Electronically Signed: Prabhakar Hendrix MD at 20:32 EDT , Chest X-Ray 01/15/24 20:23 IMPRESSION: No acute radiographic abnormalities. Electronically Signed: Prabhakar Hendrix MD at 20:33 EDT , Management Discussion w/another healthcare provider: Hospitalist and Other (Hospice) Critical Care Time Critical Care Time: Yes Critical care time (excluding procedures): 30-74 minutes (35 min), Including time spent:, Discussing w/Patient &/or Family/Respiratory Supervisor, Discussing w/Consultants, Arranging Admission or Transfer and Performing Direct Patient Care at Bedside Discharge Plan Triage Chief Complaint: Stroke Alert ED Provider: Kwame Moy Dx/Rx/DC Orders Clinical Impression: Breast cancer, Metastasis to brain, Seizure Prescriptions: No Action cholecalciferol (vitamin D3) 50 mcg (2,000 unit) tablet 50 mcg PO DAILY vitamin B complex Tablet 1 tab PO DAILY calcium citrate-vitamin D3 [Citracal + D Maximum] 315 mg-6.25 mcg (250 unit) tablet 1 tab PO DAILY ascorbic acid (vitamin C) 100 mg tablet,chewable 100 mg PO DAILY turmeric 400 mg capsule 400 mg PO DAILY vitamin E (dl, acetate) 45 mg (100 unit) capsule 45 mg PO DAILY flaxseed oil Oil 5 ml miscellaneous .QOD aspirin [Adult Aspirin Regimen] 81 mg tablet,delayed release (DR/EC) 81 mg PO DAILY Primary Care Provider: Marisa Delcid NP Referrals: Marisa Delcid [employer], [employer] [Primary Care Provider] - Print Language: Yemeni Disposition Disposition: Hospice in Medical Facility NIHSS NIHSS 1a. Level of Consciousness: Alert; keenly responsive 1b. LOC Questions: Answers BOTH questions correctly. 1c. LOC Commands: Performs both tasks correctly. 2. Best Gaze: Normal 3. Visual: No visual loss 4. Facial Palsy: Normal symmetrical movements 5a. Left Arm: Drift; arm drifts downward but doesn?t hit the bed 5b. Right Arm: Drift; arm drifts downward but doesn?t hit the bed 6a. Left Leg: Some effort against gravity; 6b. Right Leg: Some effort against gravity; 7. Limb Ataxia: Present in 2 limbs 8. Sensory: [id number] sensory loss; 9. Best Language: No aphasia; normal 10. Dysarthria: Normal 11. Extinction and Inattention: No abnormality Total: 9
--- NOTE | 2024-01-15 22:42 | ED.RN ---
This RN called report to hospice.
[2024-01-15 23:00] VITALS: PULSE 75; RESP 20; O2SAT 96
[2024-01-16 00:48] LABS: Reflex Lactate? Y
== END 2024-01-16 00:52 | disposition hospice, inpatient (51) ==
PROVIDERS: Emergency Provider Emergency Medicine; PCP Internal Medicine; Visit Provider Emergency Medicine
DX: R56.9 Unspecified convulsions (principal); C79.31 Secondary malignant neoplasm of brain; C50.912 Malignant neoplasm of unspecified site of left female breast; R11.0 Nausea; R29.898 Other symptoms and signs involving the musculoskeletal system; Z66 Do not resuscitate; Z51.5 Encounter for palliative care
CPT/HCPCS: 70450; 71045; 80048; 80076; 83605; 84484; 85025; 85610; 85730; 93005; 96374; 96375; 99285; A4216; J2405